=== PATIENT | male | born 1935 | race Caucasian/White ===

== ENCOUNTER → 2017-12-04 | Outpatient (CLI) | payer OTHER | END | disposition home or self-care (01) | LOC: C.LABSPEC 16:55 | PROVIDERS: ATTEND Podiatrist Foot & Ankle Surgery | DX: L60.0 Ingrowing nail (principal) ==

== ENCOUNTER 2024-10-21 04:05 | Inpatient (IN) ==
--- NOTE | 2024-10-21 04:30 | Emergency Department Note ---
Impression & Plan Acute dyspnea, Constipation admit to the [facility] ED Provider Note NAME: MAMADOU YOUNG AGE: 89 SEX: Male INFORMANT: Patient ED PROVIDER(S): Madison Melo DO CHIEF COMPLAINT: shortness of breath PLAN: Disposition: admit to the [facility] MEDICAL DECISION MAKING: this is an 89-year-old male patient who presents to the emergency department complaining of shortness of breath, congestion and constipation. Patient noticed he has had increasing shortness of breath over the past couple of days with upper respiratory congestion and runny/watery eyes. Patient also has noticed increasing constipation over the past week. He has been trying to take laxatives with no results. on physical exam, the patient does have significant abdominal distention. Abdominal x-ray shows moderate colonic fecal retention but no obvious signs of obstruction. Chest x-ray shows no evidence of pneumonia Or congestive heart failure. Upper respiratory bio fire testing was negative. O2 saturations were stable. BNP was normal. EKG and troponin were unremarkable. Other laboratory testing reveals no leukocytosis or anemia. Renal function and glucose were normal. Patient does describe Moderate orthopnea. Triage Nursing notes: reviewed and agree With them. Vital Signs: reviewed and remarkable for no significant abnormalities Differential Diagnosis: URI, pneumonia, CHF, bowel obstruction, constipation Diagnostics, independently interpreted by me: ECG: normal sinus rhythm at a rate of 73 with first-degree AV block. There is no ST segment elevation or signs of ischemia Cardiac Monitoring: normal sinus rhythm at 76 Imaging studies: Obstruction series: moderate colonic fecal retention with no obvious signs of obstruction. Chest x-ray portion of this x-ray series reveals no pulmonary infiltrate or consolidation. HPI: 89 year old Male arrives for evaluation of Shortness of breath and constipation. Patient noticed he has had increasing shortness of breath over the past couple of days with upper respiratory congestion and runny/watery eyes. Patient also has noticed increasing constipation over the past week. He has been trying to take laxatives with no results. PAST MEDICAL HISTORY: See Below, PAST SURGICAL HISTORY: See Below, SOCIAL HISTORY: See Below, HOME MEDICATIONS: See list ALLERGIES: codeine VITALS: See Below PHYSICAL EXAMINATION: HEENT: Head - normocephalic and atraumatic. Pupils are equal, round, and reactive to light. Extraocular eye muscles are intact, and sclera are anicteric. There is yellow drainage from both eyes. Nose - moist nasal mucosa without discharge. Mouth - moist buccal mucosa. Oropharynx is nonerythematous and there is no tonsillar exudate or edema noted. Neck: Supple; no JVD Or nuchal rigidity Heart: Regular rate and rhythm. There is a normal S1 and S2 with no murmurs, clicks, or gallops appreciated. Lungs: Clear to auscultation bilaterally with no wheezes, rales, or rhonchi. Abdomen: Soft, Moderately distended with hypoactive bowel sounds. There are no palpable pulsatile masses or hepatosplenomegaly. There is no guarding, rigidity, or rebound noted. Extremities: there is trace pedal edema. There are easily palpable peripheral pulses. Skin: warm and dry with good turgor and no rashes. Emergency Department course: The patient was evaluated in room B-7. A complete history and physical was performed. An order was placed for continuous cardiac monitoring. The patient was in a normal sinus rhythm at a rate of 76. A twelve-lead EKG was obtained as described above. Upper respiratory bio fire testing was obtained. Patient has a portable chest x-ray performed. I discussed the case with the [facility] Hospitalist and they will evaluate for further inpatient care. 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 Deviated nasal septum Esophageal stricture Hypertrophic toenail HLD (hyperlipidemia) Medical History Sciatica Difficulty swallowing History of skin cancer Hearing deficit Surgical History History of open reduction and internal fixation (ORIF) procedure History of esophagogastroduodenoscopy (EGD) History of tooth extraction History of appendectomy History of Mohs micrographic surgery for skin cancer History of left cataract extraction Family History (Updated 07/28/24 @ 13:33 by Leticia Brito) Unknown Skin cancer Pure hypercholesterolemia Hypertension Father Family history of diabetes mellitus Brother Family hx of colon cancer Environmental allergies Colorectal cancer Other No family history of adverse response to anesthesia Denies family history of Ovarian cancer Prostate cancer Coronary heart disease Breast cancer Social History (Updated 07/28/24 @ 13:33 by Leticia Brito) Smoking Status: Current every day smoker Tobacco Type: Cigars Age Started Using Tobacco: 17; packs per day: 1; Cigarettes Per Day: 7-8 cigars daily; Second Hand Exposure: Yes; Do You Dip or Chew Tobacco: No; Hx Alcohol Use: No Hx Substance Use: No Preferred Language: Georgian Communication Ability: Effective Visual Impairment: No Limitations Hearing Ability: Use of Hearing Aid Publisher Assistant Required: No Beliefs That Will Affect Care: None marital status: Current Living Situation: Alone current occupational status: retired Feels Safe at Home: Yes Safety Concerns Comment: Pt reports falling, so is scared he is going to fall again Childhood Exposure to Second-Hand Smoke: Yes Diet: regular caffeine: Yes during the past year weight has: remained stable Dental Care, Regularly: No Physical Activity Frequency: Daily Physical Activity Frequency Comment: walks 0.5-0.75 Seatbelt Use: sometimes Sunscreen Use: No Assistive Devices: Glasses, Hearing Aid - Bilateral and Walker (does not use) Allergies Allergies Allergy/AdvReac Type Severity Reaction Status Date / Time codeine AdvReac Severe did not Verified 10/02/24 09:33 work for pain Home Meds Home Medications Medication Instructions Recorded Confirmed acetaminophen 500 mg tablet 500 mg PO Q6H PRN 12/31/22 10/02/24 (Tylenol Extra Strength) magnesium 250 mg tablet 250 mg PO DAILY 12/20/23 10/02/24 guaifenesin [Mucinex] PO PRN 10/02/24 10/02/24 Previous Rx's Medication Instructions Recorded psyllium husk 3.4 gram/5.4 gram 1 tbsp PO DAILY #660 grams 01/28/23 oral powder (Metamucil) loratadine 10 mg tablet 10 mg PO DAILY PRN allergy 06/11/23 symptoms 90 days #90 tabs albuterol sulfate 90 mcg/actuation 2 puff inhalation QID PRN 11/11/23 aerosol inhaler shortness of breath or wheezing #8.5 grams fluticasone propionate 50 2 spray intranasal DAILY #48 grams 08/02/24 mcg/actuation nasal spray,suspension olmesartan 20 mg tablet 20 mg PO DAILY #90 tabs 10/15/24 Results & Data (ED) Vital Signs Vital Signs - 24 hr 10/21/24 04:09 10/21/24 04:10 10/21/24 04:18 Temperature 36.8 C Temperature Source Oral Pulse Rate 78 79 Respiratory Rate 20 Respiratory Effort / Characteristics Non-Labored Spontaneous Respiratory Depth Normal Blood Pressure 117/80 Blood Pressure Mean 92 Pulse Oximetry 96 Oxygen Delivery Method Room Air Room Air Sepsis Recent Fever Within 48 Hours No Sepsis New/Unexplained Change in Mental Status N/A Sepsis Action Taken by Nursing No Action Required 10/21/24 04:30 10/21/24 04:30 10/21/24 05:30 Temperature Temperature Source Pulse Rate 72 72 Respiratory Rate 18 20 Respiratory Effort / Characteristics Respiratory Depth Blood Pressure 173/92 H 186/99 H Blood Pressure Mean 119 126 Pulse Oximetry 95 95 93 Oxygen Delivery Method Room Air Sepsis Recent Fever Within 48 Hours Sepsis New/Unexplained Change in Mental Status Sepsis Action Taken by Nursing 10/21/24 06:00 Temperature Temperature Source Pulse Rate 66 Respiratory Rate 20 Respiratory Effort / Characteristics Respiratory Depth Blood Pressure 185/96 H Blood Pressure Mean 115 Pulse Oximetry 93 Oxygen Delivery Method Sepsis Recent Fever Within 48 Hours Sepsis New/Unexplained Change in Mental Status Sepsis Action Taken by Nursing Laboratory Data 10/21/24 04:17 10/21/24 04:17 Lab Results 10/21/24 10/21/24 Range/Units 04:17 04:30 WBC 10.02 (4.8-10.8) K/ul RBC 4.44 L (4.70-6.10) M/uL Hgb 14.1 (14.0-18.0) g/dl Hct 41.8 L (42.0-52.0) % MCV 94.1 (80.0-100.0) fL MCH 31.8 (25.0-34.0) pg MCHC 33.7 (32.0-36.0) g/dL RDW Std Deviation 49.9 H (36.4-46.3) fL RDW Coeff of Rasheeda 14.4 (11.5-14.5) % Plt Count 275 (130-400) K/uL MPV 9.1 L (9.4-12.4) fL Immature Gran % (Auto) 0.5 % Neut % (Auto) 65.3 % Lymph % (Auto) 19.2 % [place] % (Auto) 12.1 % Eos % (Auto) 2.1 % Baso % (Auto) 0.8 % Neut # (Auto) 6.55 H (1.40-6.50) K/uL Lymph # (Auto) 1.92 (1.20-3.40) K/uL [place] # (Auto) 1.21 H (0.11-0.59) K/uL Eos # (Auto) 0.21 (0.00-0.50) K/uL Baso # (Auto) 0.08 (0.00-0.20) K/uL Immature Gran # (Auto) 0.05 (0.01-0.20) K/uL Sodium 141 (136-145) mmol/L Potassium 3.6 (3.5-5.1) mmol/L Chloride 106 (98-107) mmol/L Carbon Dioxide 33 H (21-32) mmol/L Anion Gap 2 L (3-11) BUN 15 (6-23) mg/dl Creatinine 0.81 (0.6-1.4) mg/dl Est Cr Clr Drug Dosing 69.6 ml/min eGFR 85.33 BUN/Creatinine Ratio 18.5 (10-20) Glucose 97 (70-99(Fasting)) mg/dl Calcium 8.7 (8.6-10.3) mg/dl Total Bilirubin 0.5 (0.2-1.0) mg/dl AST 14 (13-39) U/L ALT 9 (7-52) U/L Alkaline Phosphatase 83 (34-104) U/L Troponin I High Sens 18.8 (0-20) pg/ml B-Natriuretic Peptide 71 (0-100) pg/ml Total Protein 6.7 (6.0-8.3) gm/dl Albumin 3.9 (3.4-5.0) gm/dl Globulin 2.8 (2.5-4.0) gm/dl Albumin/Globulin Ratio 1.4 (0.9-2) Adenovirus (PCR) Not Detected (NotDetected) B. pertussis DNA (PCR) Not Detected (NotDetected) B.parapertussis DNA PCR Not Detected (NotDetected) C. pneumoniae DNA (PCR) Not Detected (NotDetected) Coronavirus OC43 (PCR) Not Detected (NotDetected) Coronavirus HKU1 (PCR) Not Detected (NotDetected) Coronavirus 229E (PCR) Not Detected (NotDetected) SARS-CoV-2 (PCR) Not Detected (NotDetected) Coronavirus NL63 (PCR) Not Detected (NotDetected) Human Metapneumovir PCR Not Detected (NotDetected) Influenza Type A (PCR) Not Detected (NotDetected) Influenza Type B (PCR) Not Detected (NotDetected) M. pneumoniae (PCR) Not Detected (NotDetected) Parainfluenza 1 (PCR) Not Detected (NotDetected) Parainfluenza 2 (PCR) Not Detected (NotDetected) Parainfluenza 3 (PCR) Not Detected (NotDetected) Parainfluenza 4 (PCR) Not Detected (NotDetected) RSV (PCR) Not Detected (NotDetected) Entero/Rhino (PCR) Not Detected (NotDetected) Administered Medications Discontinued Medications Bisacodyl (Bisacodyl 10 Mg Supp) 10 mg VA NOW STA Stop: 10/21/24 05:59 Last Admin: 10/21/24 06:17 Dose: 10 mg Documented By: EDWARD Imaging Data Radiologist's Impression: Chest/Abdomen X-ray 10/21/24 04:30 EXAM: XR abdomen 2V w PA chest CLINICAL HISTORY: CHEST PAIN, EVALUATE FOR CONSTIPATION. TECHNIQUE: X-ray images of the chest were obtained in posteroanterior (PA) projection and x-ray of the abdomen was obtained AP view. COMPARISON: X-ray chest dated 07/02/2024 and X-ray abdomen dated 08/19/2022. FINDINGS: Pulmonary Parenchyma: No evidence of consolidation, collapse, or focal opacities. No evidence of pleural effusion or pleural thickening. Heart and Mediastinum: Increased cardiac size. Bilateral prominent hilar vascular shadows. Bony Thorax: Bony thorax appears intact without fractures or deformities. Abdomen: The stomach, small bowel, and colon gas patterns are all normal and there is no free air around the falciform ligament. No definite radiopaque shadows could be depicted. Scanned osseous structures are unremarkable. IMPRESSION: 1. Increased cardiac size. 2. Bilateral prominent hilar vascular shadows; could be non-specific versus secondary to congestion. Clinical correlation is recommended. 3. Unremarkable x-ray of the abdomen. 4. Unchanged study. Electronically signed by Moe Jha 10-21-2024 06:18 AM Discharge Plan Visit Data Chief Complaint: Shortness of Breath/Dyspnea Stated Complaint: SHORTNESS OF BREATH, CONSTIPATION ED Provider: Madison Melo Discharge Problem: Acute dyspnea, Constipation Forms Stand Alone Forms: [facility] [employer] Prescriptions Prescriptions: No Action Metamucil 3.4 gram/5.4 gram powder 1 tbsp PO DAILY Qty: 660 2RF Rx Instructions: mix into at least 8 oz of water or juice before administering loratadine 10 mg tablet 10 mg PO DAILY PRN (Reason: allergy symptoms) 90 Days Qty: 90 1RF fluticasone propionate 50 mcg/actuation spray,suspension 2 spray intranasal DAILY Qty: 48 2RF Rx Instructions: administer into each nostril olmesartan 20 mg tablet 20 mg PO DAILY Qty: 90 3RF acetaminophen [Tylenol Extra Strength] 500 mg tablet 500 mg PO Q6H PRN guaifenesin [Mucinex] PO PRN magnesium 250 mg tablet 250 mg PO DAILY albuterol sulfate 90 mcg/actuation HFA aerosol inhaler 2 puff inhalation QID PRN (Reason: shortness of breath or wheezing) Qty: 8.5 1RF Referrals Referrals: Stacie Mario MD [Primary Care Provider] -
[2024-10-21 04:48] LABS: Basophils # (auto) 0.08 K/uL (0.00-0.20); Basophils % (auto) 0.8 %; Eosinophils # (auto) 0.21 K/uL (0.00-0.50); Eosinophils % (auto) 2.1 %; Hematocrit (blood only) 41.8 % (42.0-52.0); Hemoglobin 14.1 g/dl (14.0-18.0); Immature Granulocytes # (auto) 0.05 K/uL (0.01-0.20); Immature Granulocytes % (auto) 0.5 %; Lymphocytes # (auto) 1.92 K/uL (1.20-3.40); Lymphocytes % (auto) 19.2 %; Mean Corpuscular Hemoglobin 31.8 pg (25.0-34.0); Mean Corpuscular Hgb Conc 33.7 g/dL (32.0-36.0); Mean Corpuscular Volume 94.1 fL (80.0-100.0); Mean Platelet Volume 9.1 fL (9.4-12.4); Monocytes # (auto) 1.21 K/uL (0.11-0.59); Monocytes % (auto) 12.1 %; Neutrophils # (auto) 6.55 K/uL (1.40-6.50); Neutrophils % (auto) 65.3 %; Platelet Count 275 K/uL (130-400); RDW Coefficient of Variation 14.4 % (11.5-14.5); RDW Standard Deviation 49.9 fL (36.4-46.3); Red Blood Count 4.44 M/uL (4.70-6.10); White Blood Count 10.02 K/ul (4.8-10.8)
[2024-10-21 04:59] LABS: Albumin Globulin Ratio 1.4 (0.9-2); Albumin Level 3.9 gm/dl (3.4-5.0); BUN Creatinine Ratio 18.5 (10-20); Bilirubin,Total 0.5 mg/dl (0.2-1.0); Calcium 8.7 mg/dl (8.6-10.3); Creatinine Clr Calc Pharmacy 69.6 ml/min; Globulin 2.8 gm/dl (2.5-4.0); Potassium 3.6 mmol/L (3.5-5.1); Total Protein 6.7 gm/dl (6.0-8.3)
[2024-10-21 05:05] LABS: Troponin I High Sensitivity 18.8 pg/ml (0-20)
--- NOTE | 2024-10-21 05:21 | History & Physical Report ---
Date of Service October 21, 2024 Assessment & Plan (1) Constipation: (2) COPD (chronic obstructive pulmonary disease): (3) Ambulatory dysfunction: (4) Essential hypertension: (5) BPH w urinary obs/LUTS: Plan The patient is an 89-year-old male with past medical history including BPH with LUTS, tobacco use, prediabetes, hypertension, inferior nasal turbinate hypertrophy, esophageal stricture, hyperlipidemia, COPD, and allergic symptoms.The patient presents to the emergency department with complaint of shortness of breath, constipation, has not moved his bowels in over a week despite normal intake of liquids and solids. He has had difficulty with discomfort urinating, and starting his stream. He reports some generalized fatigue, weakness, and difficulty ambulating. He attributes his shortness of breath to abdominal distention and inability to take a deep breath. #Constipation- KUB, difficult to interpret, but does not show obstruction, there are some nonspecific bowel loop changes, potentially a developing ileus. Review radiology interpretation when available Patient reports that he has not moved his bowels in the past week Place on more aggressive bowel regimen as noted Colace 100 mg p.o. twice daily Dulcolax suppository daily as needed, with dose now MiraLAX 17 g p.o. daily as needed Continue Metamucil 1 tablespoon p.o. daily NSS + KCl 20 mEq per hour x 1 L #COPD exacerbation- History of tobacco use Pulse ox presently 93% on room air. Goal range is 92-94% Likely secondary to abdominal distention and decreased lung excursion secondarily Continue albuterol sulfate HFA 2 puffs 4 times daily, every 2 hours as needed Continue Mucinex 600 mg p.o. every 12 hours DuoNebs every 2 hours as needed Respiratory BioFire test negative #Tobacco use disorder- Recently discontinued cigarette use. Tobacco sensation encouraged. He reports that he did stop smoking on 10/01/2024, just prior to office visit with Dr. Mario in the outpatient setting #BPH with LUTS- Follow urine culture and sensitivity Patient notes decreased urinary output, dysuria, and decreased ability to start stream Start tamsulosin 0.4 mg daily #Ongoing medical issues: Hypertension-continue olmesartan or substitute, Allergic symptoms: Loratadine 10 mg daily as needed, fluticasone nasal spray 2 sprays each nostril daily Ambulatory dysfunction-Consult PT/OT Prediabetes-glucose 97 on admission follow-up with regular morning laboratories History of Present Illness Chief Complaint: The patient presents to the emergency department with complaint of shortness of breath, constipation, has not moved his bowels in over a week despite normal intake of liquids and solids. He has had difficulty with discomfort urinating, and starting his stream. He reports some generalized fatigue, weakness, and difficulty ambulating. He attributes his shortness of breath to abdominal distention and inability to take a deep breath. Primary Care Provider: Stacie Mario MD The patient is an 89-year-old male with past medical history including BPH with LUTS, tobacco use, prediabetes, hypertension, inferior nasal turbinate hypertrophy, esophageal stricture, hyperlipidemia, COPD, and allergic symptoms.The patient presents to the emergency department with complaint of shortness of breath, constipation, has not moved his bowels in over a week despite normal intake of liquids and solids. He has had difficulty with discomfort urinating, and starting his stream. He reports some generalized fatigue, weakness, and difficulty ambulating. He attributes his shortness of breath to abdominal distention and inability to take a deep breath. Allergies Allergy/AdvReac Type Severity Reaction Status Date / Time codeine AdvReac Severe did not Verified 10/02/24 09:33 work for pain Home Medications Medication Instructions Recorded Confirmed Type acetaminophen 500 mg tablet 500 mg PO Q6H PRN 12/31/22 10/02/24 History (Tylenol Extra Strength) psyllium husk 3.4 gram/5.4 gram 1 tbsp PO DAILY #660 grams 01/28/23 10/02/24 Rx oral powder (Metamucil) loratadine 10 mg tablet 10 mg PO DAILY PRN allergy 06/11/23 10/02/24 Rx symptoms 90 days #90 tabs albuterol sulfate 90 mcg/actuation 2 puff inhalation QID PRN 11/11/23 10/02/24 Rx aerosol inhaler shortness of breath or wheezing #8.5 grams magnesium 250 mg tablet 250 mg PO DAILY 12/20/23 10/02/24 History fluticasone propionate 50 2 spray intranasal DAILY #48 grams 05/08/24 10/02/24 Rx mcg/actuation nasal spray,suspension guaifenesin [Mucinex] PO PRN 10/02/24 10/02/24 History olmesartan 20 mg tablet 20 mg PO DAILY #90 tabs 10/15/24 Rx Past Med/Surg History Problem List (Updated 10/21/24 @ 05:24 by Keith Ray MD) COPD (chronic obstructive pulmonary disease) BPH w urinary obs/LUTS Ambulatory dysfunction Cognitive impairment Lower urinary tract symptoms (LUTS) Current smoker Prediabetes Sinus congestion (Acute) Essential hypertension (Chronic) BPH associated with nocturia (Acute) Dysphagia (Acute) Refractory obstruction of nasal airway Hypertrophy of both inferior nasal turbinates Deviated nasal septum Esophageal stricture Hypertrophic toenail HLD (hyperlipidemia) Medical History Sciatica Difficulty swallowing History of skin cancer Hearing deficit Surgical History History of open reduction and internal fixation (ORIF) procedure History of esophagogastroduodenoscopy (EGD) History of tooth extraction History of appendectomy History of Mohs micrographic surgery for skin cancer History of left cataract extraction Family History (Updated 07/28/24 @ 13:33 by Leticia Brito) Unknown Skin cancer Pure hypercholesterolemia Hypertension Father Family history of diabetes mellitus Brother Family hx of colon cancer Environmental allergies Colorectal cancer Other No family history of adverse response to anesthesia Denies family history of Ovarian cancer Prostate cancer Coronary heart disease Breast cancer Social History (Updated 07/28/24 @ 13:33 by Leticia Brito) Smoking Status: Current every day smoker Tobacco Type: Cigars Age Started Using Tobacco: 17; packs per day: 1; Cigarettes Per Day: 7-8 cigars daily; Second Hand Exposure: Yes; Do You Dip or Chew Tobacco: No; Hx Alcohol Use: No Hx Substance Use: No Preferred Language: Bulgarian Communication Ability: Effective Visual Impairment: No Limitations Hearing Ability: Use of Hearing Aid Surveillance Sensor Operator Required: No Beliefs That Will Affect Care: None marital status: Current Living Situation: Alone current occupational status: retired Feels Safe at Home: Yes Safety Concerns Comment: Pt reports falling, so is scared he is going to fall again Childhood Exposure to Second-Hand Smoke: Yes Diet: regular caffeine: Yes during the past year weight has: remained stable Dental Care, Regularly: No Physical Activity Frequency: Daily Physical Activity Frequency Comment: walks 0.5-0.75 Seatbelt Use: sometimes Sunscreen Use: No Assistive Devices: Glasses, Hearing Aid - Bilateral and Walker (does not use) Review of Systems Review of Systems: The patient denies chest pain, palpitations, lower extremity swelling, sore throat, fevers, chills, sweats, vomiting, diarrhea, blood in urine or stool, dysuria, urinary frequency or urgency, lightheadedness, dizziness, headache, loss of consciousness, rash, abnormal bruising or bleeding, focal or generalized weakness, numbness or tingling in arms or legs, generalized arthralgias or myalgias, back or neck pain, or night sweats. The review of systems is otherwise negative other than for that already noted above, and at least 10 systems have been reviewed. Physical Exam Physical Exam: The patient is awake, alert and oriented 3, well developed and well nourished, normocephalic and atraumatic, lying in bed and in no acute distress. HEENT--PERRL, EOMI, mucous membranes and oropharynx mildly dry. Neck--supple. No JVD. No bruits. Thyroid normal, trachea midline, no adenopathy. Heart--normal S1 and S2. No murmurs, rubs or gallops. Lungs--decreased breath sounds throughout. A few scattered wheezes bilaterally. No respiratory distress, no accessory muscle use. Abdomen--normal bowel sounds and soft. Nontender. Mildly distended and tympanitic. Extremities-- 1+ bilateral pretibial pitting edema. Dermatologic--normal skin turgor, normal color, no abnormal lymph nodes, no rash. Neurologic--cranial nerves II through XII grossly intact. Rheumatologic--normal range of motion. Psychiatric--normal affect. Results & Data Results & Data Vital Signs (Past 12 Hours) Vital Signs Temp Pulse Resp BP Pulse Ox O2 Del Method 10/21/24 04:30 72 18 173/92 H 95 10/21/24 04:30 95 Room Air 10/21/24 04:18 Room Air 10/21/24 04:10 79 10/21/24 04:09 36.8 C 78 20 117/80 96 Room Air Laboratory Results Laboratory Results WBC 10.02 K/ul (4.8-10.8) 10/21/24 04:17 RBC 4.44 M/uL (4.70-6.10) L 10/21/24 04:17 Hgb 14.1 g/dl (14.0-18.0) 10/21/24 04:17 Hct 41.8 % (42.0-52.0) L 10/21/24 04:17 MCV 94.1 fL (80.0-100.0) 10/21/24 04:17 MCH 31.8 pg (25.0-34.0) 10/21/24 04:17 MCHC 33.7 g/dL (32.0-36.0) 10/21/24 04:17 RDW Std Deviation 49.9 fL (36.4-46.3) H 10/21/24 04:17 RDW Coeff of Rasheeda 14.4 % (11.5-14.5) 10/21/24 04:17 Plt Count 275 K/uL (130-400) 10/21/24 04:17 MPV 9.1 fL (9.4-12.4) L 10/21/24 04:17 Immature Gran % (Auto) 0.5 % 10/21/24 04:17 Neut % (Auto) 65.3 % 10/21/24 04:17 Lymph % (Auto) 19.2 % 10/21/24 04:17 Edmunds % (Auto) 12.1 % 10/21/24 04:17 Eos % (Auto) 2.1 % 10/21/24 04:17 Baso % (Auto) 0.8 % 10/21/24 04:17 Neut # (Auto) 6.55 K/uL (1.40-6.50) H 10/21/24 04:17 Lymph # (Auto) 1.92 K/uL (1.20-3.40) 10/21/24 04:17 Edmunds # (Auto) 1.21 K/uL (0.11-0.59) H 10/21/24 04:17 Eos # (Auto) 0.21 K/uL (0.00-0.50) 10/21/24 04:17 Baso # (Auto) 0.08 K/uL (0.00-0.20) 10/21/24 04:17 Immature Gran # (Auto) 0.05 K/uL (0.01-0.20) 10/21/24 04:17 Sodium 141 mmol/L (136-145) 10/21/24 04:17 Potassium 3.6 mmol/L (3.5-5.1) 10/21/24 04:17 Chloride 106 mmol/L (98-107) 10/21/24 04:17 Carbon Dioxide 33 mmol/L (21-32) H 10/21/24 04:17 Anion Gap 2 (3-11) L 10/21/24 04:17 BUN 15 mg/dl (6-23) 10/21/24 04:17 Creatinine 0.81 mg/dl (0.6-1.4) 10/21/24 04:17 Est Cr Clr Drug Dosing 69.6 ml/min 10/21/24 04:17 eGFR 85.33 10/21/24 04:17 BUN/Creatinine Ratio 18.5 (10-20) 10/21/24 04:17 Glucose 97 mg/dl (70-99(Fasting)) 10/21/24 04:17 Calcium 8.7 mg/dl (8.6-10.3) 10/21/24 04:17 Total Bilirubin 0.5 mg/dl (0.2-1.0) 10/21/24 04:17 AST 14 U/L (13-39) 10/21/24 04:17 ALT 9 U/L (7-52) 10/21/24 04:17 Alkaline Phosphatase 83 U/L (34-104) 10/21/24 04:17 Troponin I High Sens 18.8 pg/ml (0-20) 10/21/24 04:17 B-Natriuretic Peptide 71 pg/ml (0-100) 10/21/24 04:17 Total Protein 6.7 gm/dl (6.0-8.3) 10/21/24 04:17 Albumin 3.9 gm/dl (3.4-5.0) 10/21/24 04:17 Globulin 2.8 gm/dl (2.5-4.0) 10/21/24 04:17 Albumin/Globulin Ratio 1.4 (0.9-2) 10/21/24 04:17 Code Status & VTE Plan Code Status Full code PG Care Time/CCT Total # of Minutes Spent Total Time Spent with Patient: Total time spent is greater than 50% in coordination of care (as documented) at patient's floor/unit and/or counseling patient: Coding Level of Care Code 15223 INT INP/OBS CARE MIN Diagnoses Constipation K59.00 COPD (chronic obstructive pulmonary disease) J44.9 Ambulatory dysfunction R26.2 Essential hypertension I10 BPH w urinary obs/LUTS N40.1; N13.8
[2024-10-21 05:41] LABS: Adenovirus PCR Not Detected (NotDetected); Bordetella parapertussis PCR Not Detected (NotDetected); Bordetella pertussis PCR Not Detected (NotDetected); Chlamydia pneumoniae PCR Not Detected (NotDetected); Coronavirus 229E PCR Not Detected (NotDetected); Coronavirus CoV-2 (COVID19)PCR Not Detected (NotDetected); Coronavirus HKU1 PCR Not Detected (NotDetected); Coronavirus NL63 PCR Not Detected (NotDetected); Coronavirus OC43PCR Not Detected (NotDetected); Human Metapneumovirus PCR Not Detected (NotDetected); Influenza A PCR Not Detected (NotDetected); Influenza B PCR Not Detected (NotDetected); Mycoplasma pneumoniae PCR Not Detected (NotDetected); Parainfluenza Virus 1 PCR Not Detected (NotDetected); Parainfluenza Virus 2 PCR Not Detected (NotDetected); Parainfluenza Virus 3 PCR Not Detected (NotDetected); Parainfluenza Virus 4 PCR Not Detected (NotDetected); Respiratory Syncytial VirusPCR Not Detected (NotDetected); Rhinovirus/Enterovirus PCR Not Detected (NotDetected)
[2024-10-21] MEDS: bisacodyL 10 MG SUPP PR STA (06:17)
--- NOTE | 2024-10-21 06:18 | XRay Report ---
EXAM: XR abdomen 2V w PA chest CLINICAL HISTORY: CHEST PAIN, EVALUATE FOR CONSTIPATION. TECHNIQUE: X-ray images of the chest were obtained in posteroanterior (PA) projection and x-ray of the abdomen was obtained AP view. COMPARISON: X-ray chest dated 07/02/2024 and X-ray abdomen dated 08/19/2022. FINDINGS: Pulmonary Parenchyma: No evidence of consolidation, collapse, or focal opacities. No evidence of pleural effusion or pleural thickening. Heart and Mediastinum: Increased cardiac size. Bilateral prominent hilar vascular shadows. Bony Thorax: Bony thorax appears intact without fractures or deformities. Abdomen: The stomach, small bowel, and colon gas patterns are all normal and there is no free air around the falciform ligament. No definite radiopaque shadows could be depicted. Scanned osseous structures are unremarkable. IMPRESSION: 1. Increased cardiac size. 2. Bilateral prominent hilar vascular shadows; could be non-specific versus secondary to congestion. Clinical correlation is recommended. 3. Unremarkable x-ray of the abdomen. 4. Unchanged study. Electronically signed by Moe Jha 10-21-2024 06:18 AM
[2024-10-21] MEDS ORDERED: ONDANSETRON INJ 2 MG/ML 2 ML VIAL IV PRN (07:10)
[2024-10-21] MEDS ORDERED: POLYETHYLENE (MIRALAX) 17 GM PACK PO PRN (07:10)
[2024-10-21] MEDS ORDERED: LORATADINE 10 MG TAB PO PRN (07:10)
[2024-10-21] MEDS ORDERED: bisacodyL 10 MG SUPP PR PRN (07:10)
[2024-10-21] MEDS ORDERED: ALBUT/IPRATROP 3MG/0.5MG NEB 3 ML VIAL NEB PRN (07:10)
[2024-10-21] MEDS ORDERED: ALBUTEROL HFA 8 GM INHALER INH PRN (07:23)
[2024-10-21] MEDS: ALBUTEROL HFA 8 GM INHALER INH SCH (07:34)
[2024-10-21 09:02] LABS: Appearance Urine Clear (Clear); Bilirubin Urine Negative (Negative); Blood Urine Negative (Negative); Color Urine Yellow; Glucose Urine UA Negative (Negative); Ketones Urine Negative (Negative); Leukocyte Esterase Urine Negative (Negative); Nitrite Urine Negative (Negative); Protein Urine Negative (Negative); Specific Gravity Urine 1.019 (1.000-1.030); Urobilinogen Urine Negative (Negative)
[2024-10-21] MEDS: PSYLLIUM or GUAR GUM FIBER 4GM PACKET PO SCH (09:11)
[2024-10-21] MEDS: HEPARIN SOD 5,000 UNIT/0.5 ML VIAL SQ SCH (09:12)
[2024-10-21] MEDS: DOCUSATE SODIUM 100 MG CAP PO SCH (09:12)
[2024-10-21] MEDS: FLUTICASONE PROPIONATE NA SPR 16 GM BTL NAE SCH (09:13)
[2024-10-21] MEDS: guaiFENesin 600 MG TABCR PO SCH (09:14)
[2024-10-21] MEDS: LOSARTAN POTASSIUM 50 MG TAB PO SCH (09:14)
[2024-10-21] MEDS: TAMSULOSIN HCL 0.4 MG CAP PO SCH (09:14)
--- NOTE | 2024-10-21 09:15 | CT Scan Report ---
ABDOMEN AND PELVIS CT WITHOUT CONTRAST CT DOSE: 1230.53 mGy.cm HISTORY: Acute generalized abdominal pain with constipation abd pain TECHNIQUE: Multiaxial CT images of the abdomen and pelvis were performed without contrast. A dose lo wering technique was utilized adhering to the principles of ALARA. COMPARISON STUDY: Radiographs of same day, a chest CT 03/19/2023 FINDINGS: Limited study secondary to upper extremity positioning, respiratory motion artifact and lac k of IV contrast. The heart is mildly enlarged with mild coronary artery calcifications. The lung bas es are generally clear. There is no pneumatosis or pneumoperitoneum. Unremarkable unenhanced spleen, pancreas and adrenal glands. Cholelithiasis without CT evidence of ac lanette cholecystitis. Unremarkable liver. Mild nonspecific bilateral perinephric stranding without hydro nephrosis. Exophytic cyst arises from the posterior superior to midpole left kidney measuring 7.3 x 4 .8 x 10.9 cm. Prostatomegaly. Urinary bladder wall thickening with partial distention. Atherosclerosi s of the aorta. No pathologically enlarged lymph nodes. Mild nonspecific distal esophageal wall thickening. Duodenal diverticulum. Colonic diverticulosis wit hout acute diverticulitis. Moderate colonic fecal retention. The appendix is not definitively seen. N o acute fracture. Scattered sclerotic foci of the bony pelvis and lower lumbar spine are nonspecific, possibly bone islands. IMPRESSION: 1. No bowel obstruction or bowel wall thickening. 2. Moderate fecal retention. 3. Colonic diverticulosis. 4. Cholelithiasis. 5. Prostamegaly with evidence of chronic outlet obstruction. Correlate with urinalysis. ACT 112: Negative or not required by law. The above report was generated using voice recognition software. It may contain grammatical, syntax o r spelling errors. Electronically signed by: Vinny Stewart M.D. 10/21/2024 9:12 AM
--- NOTE | 2024-10-21 14:32 | XCELERA ---
[id number]
[2024-10-21] MEDS: ACETAMINOPHEN 500 MG TAB PO PRN (15:55)
[2024-10-21] MEDS: ARIPiprazole 5 MG TAB PO SCH (21:10)
[2024-10-22] MEDS: MELATONIN 3 MG TAB PO PRN (01:07)
[2024-10-22 07:16] LABS: Basophils # (auto) 0.05 K/uL (0.00-0.20); Basophils % (auto) 0.5 %; Eosinophils # (auto) 0.17 K/uL (0.00-0.50); Eosinophils % (auto) 1.8 %; Hematocrit (blood only) 38.5 % (42.0-52.0); Hemoglobin 13.1 g/dl (14.0-18.0); Immature Granulocytes # (auto) 0.05 K/uL (0.01-0.20); Immature Granulocytes % (auto) 0.5 %; Lymphocytes # (auto) 1.14 K/uL (1.20-3.40); Lymphocytes % (auto) 11.9 %; Mean Corpuscular Hemoglobin 31.6 pg (25.0-34.0); Mean Corpuscular Volume 92.8 fL (80.0-100.0); Mean Platelet Volume 9.2 fL (9.4-12.4); Monocytes # (auto) 0.99 K/uL (0.11-0.59); Monocytes % (auto) 10.3 %; Neutrophils # (auto) 7.18 K/uL (1.40-6.50); Platelet Count 240 K/uL (130-400); RDW Coefficient of Variation 14.3 % (11.5-14.5); Red Blood Count 4.15 M/uL (4.70-6.10); White Blood Count 9.58 K/ul (4.8-10.8)
[2024-10-22 07:34] LABS: Albumin Level 3.5 gm/dl (3.4-5.0); BUN Creatinine Ratio 18.3 (10-20); Calcium 8.8 mg/dl (8.6-10.3); Creatinine Clr Calc Pharmacy 88.3 ml/min; Magnesium 1.8 mg/dl (1.7-2.4); Phosphorus 3.3 mg/dl (2.5-4.9); Potassium 3.4 mmol/L (3.5-5.1)
--- NOTE | 2024-10-22 09:36 | Hospitalist Progress Note ---
Date of Service October 22, 2024 Assessment & Plan (1) Constipation: (2) COPD (chronic obstructive pulmonary disease): (3) Ambulatory dysfunction: (4) Essential hypertension: (5) BPH w urinary obs/LUTS: (6) Dementia: Plan The patient is an 89-year-old male with past medical history including BPH with LUTS, tobacco use, prediabetes, hypertension, inferior nasal turbinate hypertrophy, esophageal stricture, hyperlipidemia, COPD, and allergic symptoms.The patient presents to the emergency department with complaint of shortness of breath, constipation, has not moved his bowels in over a week despite normal intake of liquids and solids. He has had difficulty with discomfort urinating, and starting his stream. He reports some generalized fatigue, weakness, and difficulty ambulating. He attributes his shortness of breath to abdominal distention and inability to take a deep breath. #Constipation- Resolved he has had a bowel movement will continue stool softener given some residual stool in the colon #COPD exacerbation- No wheeze on exam today Continue albuterol sulfate HFA 2 puffs 4 times daily, every 2 hours as needed Continue Mucinex 600 mg p.o. every 12 hours DuoNebs every 2 hours as needed Respiratory BioFire test negative #Tobacco use disorder- Recently discontinued cigarette use. Tobacco sensation encouraged. He reports that he did stop smoking on 10/01/2024, just prior to office visit with Dr. Mario in the outpatient setting #BPH with LUTS- Follow urine culture and sensitivity Patient notes decreased urinary output, dysuria, and decreased ability to start stream Start tamsulosin 0.4 mg daily #Dementia patient has some dementia or at least cognitive impairment as corroborated by his daughter according to his daughter, he has become more confused and often drives several times a day to see her He lives alone and has fallen a few times in the past He is not a safe discharge home # Frequent falls Has fallen a few times in the past Lives alone Not able to participate fully in PT because he was not following instructions He is less impulsive today and may participate in PT #Ongoing medical issues: Hypertension-continue olmesartan or substitute, Allergic symptoms: Loratadine 10 mg daily as needed, fluticasone nasal spray 2 sprays each nostril daily Ambulatory dysfunction-Consult PT/OT Prediabetes-glucose 97 on admission follow-up with regular morning laboratories Disposition: patient has some dementia or at least cognitive impairment as corroborated by his daughter according to his daughter, he has become more confused and often drives several times a day to see her He lives alone and has fallen a few times in the past He is not a safe discharge home. Awaiting repeat PT eval. He may benefit from placement, although I doubt if he will agree Admission and Anticipated Discharge Date Admission Date: October 21, 2024 Subjective patient seen and examined, sitting in the chair, was looking for his dentures and glasses Review of Systems Review of Systems: All systems reviewed are negative, apart from the ones contained in the history. Physical Exam Physical Exam: The patient is awake, alert and oriented 3, well developed and well nourished, normocephalic and atraumatic, lying in bed and in no acute distress. HEENT--PERRL, EOMI, mucous membranes and oropharynx mildly dry Neck--supple. No JVD. No bruits. Thyroid normal, trachea midline, no adenopathy. Heart--normal S1 and S2. No murmurs, rubs or gallops. Lungs--clear bilaterally, no respiratory distress, no accessory muscle use. Abdomen--normal bowel sounds and soft. Extremities--no cyanosis or clubbing. No edema. Dermatologic--normal skin turgor, normal color, no abnormal lymph nodes, no rash. Neurologic--cranial nerves II through XII grossly intact. Rheumatologic--normal range of motion. Psychiatric--normal affect. Results & Data Results & Data Vital Signs (Past 12 Hours) Vital Signs Temp Pulse Resp BP Pulse Ox O2 Del Method 10/22/24 09:21 98.2 F 72 16 166/73 H 96 Room Air 10/22/24 07:41 97.5 F L 83 16 167/75 H 95 Room Air 10/22/24 07:00 Room Air PG Care Time/CCT Total # of Minutes Spent Total Time Spent with Patient: Total time spent is greater than 50% in coordination of care (as documented) at patient's floor/unit and/or counseling patient: Coding Level of Care Code 50820 SUB INP/OBS CARE 2/35MIN Diagnoses Constipation K59.00 COPD (chronic obstructive pulmonary disease) J44.9 Ambulatory dysfunction R26.2 Essential hypertension I10 BPH w urinary obs/LUTS N40.1; N13.8 Dementia F03.90 Time Spent (min) 35
[2024-10-22] MEDS: OLANZapine 10 MG/2.1 ML SDV IM ONE (19:58)
[2024-10-23] MEDS: OLANZapine 10 MG/2.1 ML SDV IM ONE ×2 (00:28→03:22)
[2024-10-23] MEDS: IBUPROFEN 600 MG TAB PO ONE (03:17)
--- NOTE | 2024-10-23 05:40 | Communication Note ---
Date of Service: October 23, 2024 Patient w/ hyperactive delirium with aggression overnight. Code montoya called x2. Patient becoming aggressive towards nurses and reaching to try and punch or kick surrounding persons. Ordered Tylenol, ibuprofen, lidocaine patch in an effort to control hip pain assuming this was a potential factor leading to agitation with no success. Zyprexa 5 mg x2 and Zyprexa 10 mg given in a span of 6-8 hours w/ minimal change. Patient currently in soft limb restraints in an effort to prevent further self harm and minimize risk to staff Resident Activity Tracking Resident Involvement: Resident Care Provided Care Provided: Adult Hospital Medicine
[2024-10-23 07:24] LABS: Basophils # (auto) 0.05 K/uL (0.00-0.20); Basophils % (auto) 0.5 %; Eosinophils # (auto) 0.13 K/uL (0.00-0.50); Eosinophils % (auto) 1.4 %; Hematocrit (blood only) 39.9 % (42.0-52.0); Hemoglobin 13.8 g/dl (14.0-18.0); Immature Granulocytes # (auto) 0.03 K/uL (0.01-0.20); Immature Granulocytes % (auto) 0.3 %; Lymphocytes # (auto) 1.82 K/uL (1.20-3.40); Lymphocytes % (auto) 19.4 %; Mean Corpuscular Hemoglobin 32.1 pg (25.0-34.0); Mean Corpuscular Hgb Conc 34.6 g/dL (32.0-36.0); Mean Corpuscular Volume 92.8 fL (80.0-100.0); Mean Platelet Volume 9.5 fL (9.4-12.4); Monocytes # (auto) 1.19 K/uL (0.11-0.59); Monocytes % (auto) 12.7 %; Neutrophils # (auto) 6.15 K/uL (1.40-6.50); Neutrophils % (auto) 65.7 %; Platelet Count 284 K/uL (130-400); RDW Standard Deviation 47.8 fL (36.4-46.3); White Blood Count 9.37 K/ul (4.8-10.8)
[2024-10-23 07:45] LABS: Albumin Level 3.9 gm/dl (3.4-5.0); BUN Creatinine Ratio 13.4 (10-20); Calcium 9.2 mg/dl (8.6-10.3); Creatinine Clr Calc Pharmacy 64.6 ml/min; Magnesium 1.9 mg/dl (1.7-2.4); Phosphorus 3.1 mg/dl (2.5-4.9); Potassium 3.7 mmol/L (3.5-5.1)
[2024-10-23] MEDS: LIDOCAINE 5% 1 PATCH TD SCH (08:04)
--- NOTE | 2024-10-23 09:33 | Hospitalist Progress Note ---
Date of Service October 23, 2024 Assessment & Plan (1) Constipation: (2) COPD (chronic obstructive pulmonary disease): (3) Ambulatory dysfunction: (4) Essential hypertension: (5) BPH w urinary obs/LUTS: (6) Dementia: Plan The patient is an 89-year-old male with past medical history including BPH with LUTS, tobacco use, prediabetes, hypertension, inferior nasal turbinate hypertrophy, esophageal stricture, hyperlipidemia, COPD, and allergic symptoms.The patient presents to the emergency department with complaint of shortness of breath, constipation, has not moved his bowels in over a week despite normal intake of liquids and solids. He has had difficulty with discomfort urinating, and starting his stream. He reports some generalized fatigue, weakness, and difficulty ambulating. He attributes his shortness of breath to abdominal distention and inability to take a deep breath. #Dementia #AMS / Agitation - suspect delirium - patient has some dementia or at least cognitive impairment as corroborated by his daughter - according to his daughter, he has become more confused and often drives several times a day to see her - He lives alone and has fallen a few times in the past - He is not a safe discharge home - currently no active evidence of infection - CT head when pt more able to tolerate - abilify changed to seroquel hs + day time dosing per psyc, haldol prn for agitation - currently in 4-pt restraint, wean as behavior improves - psych on board #Constipation- - Resolved - he has had a bowel movement - will continue stool softener given some residual stool in the colon #COPD exacerbation- - No wheeze on exam today - Continue albuterol sulfate HFA 2 puffs 4 times daily, every 2 hours as needed - Continue Mucinex 600 mg p.o. every 12 hours - DuoNebs every 2 hours as needed - Respiratory BioFire test negative #Tobacco use disorder- - Recently discontinued cigarette use. - Tobacco sensation encouraged. - He reports that he did stop smoking on 10/01/2024, just prior to office visit with Dr. Mario in the outpatient setting #BPH with LUTS- - UA negative - Patient notes decreased urinary output, dysuria, and decreased ability to start stream - cont tamsulosin 0.4 mg daily # Frequent falls - Has fallen a few times in the past - Lives alone - Not able to participate fully in PT because he was not following instructions - He is less impulsive today and may participate in PT #Ongoing medical issues: - Hypertension-continue olmesartan or substitute, - Allergic symptoms: Loratadine 10 mg daily as needed, fluticasone nasal spray 2 sprays each nostril daily - Ambulatory dysfunction- PT/OT on board - Prediabetes-glucose 97 on admission follow-up with regular morning laboratories Disposition: patient has some dementia or at least cognitive impairment as corroborated by his daughter according to his daughter, he has become more confused and often drives several times a day to see her He lives alone and has fallen a few times in the past He is not a safe discharge home. Awaiting repeat PT eval. He may benefit from placement, although I doubt if he will agree Admission and Anticipated Discharge Date Admission Date: October 21, 2024 Subjective Overnight pt became combative and was placed on 4-point restraint Currently, he remains the same Review of Systems Review of Systems: Partial ROS completed which is negative Pt does not answer the questions at times Physical Exam Physical Exam: Gen: NAD, 4-point restraint, being restless in bed at times HEENT: NC/AT, dry MM Lungs: CTAB CVS: s1s2nl, RRR Abd: soft, NT, nl bowel sounds : external cather in place Ext: no edema, moving all extremities equally PG Care Time/CCT Total # of Minutes Spent Total Time Spent with Patient: Total time spent is greater than 50% in coordination of care (as documented) at patient's floor/unit and/or counseling patient: Coding Level of Care Code 53741 SUB INP/OBS CARE 3/50MIN Diagnoses Constipation K59.00 COPD (chronic obstructive pulmonary disease) J44.9 Ambulatory dysfunction R26.2 Essential hypertension I10 BPH w urinary obs/LUTS N40.1; N13.8 Dementia F03.90
[2024-10-23] MEDS: SODIUM CHLORIDE 0.9% 1,000 ML IV SCH (14:04)
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
[2024-10-23] MEDS ORDERED: QUEtiapine FUMARATE 25 MG TABLET PO PRN (16:19)
[2024-10-23] MEDS: QUEtiapine FUMARATE 25 MG TABLET PO SCH ×2 (18:05→21:16)
--- NOTE | 2024-10-23 22:23 | Electrocardiogram Report ---
Test Reason : Blood Pressure : */* mmHG Vent. Rate : 73 BPM Atrial Rate : 73 BPM P-R Int : 228 ms QRS Dur : 100 ms QT Int : 392 ms P-R-T Axes : 69 57 55 degrees QTcB Int : 431 ms Sinus rhythm with 1st degree A-V block Otherwise normal ECG When compared with ECG of 19-Mar-2023 18:48, No significant change was found Confirmed by Scar Lee ([id number]) on 10/23/2024 10:22:57 PM Referred By: REFERRED SELF Confirmed By: Scar Lee
[2024-10-24 07:10] LABS: Basophils # (auto) 0.05 K/uL (0.00-0.20); Basophils % (auto) 0.5 %; Eosinophils # (auto) 0.17 K/uL (0.00-0.50); Eosinophils % (auto) 1.5 %; Hematocrit (blood only) 45.2 % (42.0-52.0); Hemoglobin 15.3 g/dl (14.0-18.0); Immature Granulocytes # (auto) 0.03 K/uL (0.01-0.20); Immature Granulocytes % (auto) 0.3 %; Lymphocytes % (auto) 10.9 %; Mean Corpuscular Hgb Conc 33.8 g/dL (32.0-36.0); Mean Corpuscular Volume 94.6 fL (80.0-100.0); Mean Platelet Volume 9.3 fL (9.4-12.4); Monocytes # (auto) 1.17 K/uL (0.11-0.59); Monocytes % (auto) 10.6 %; Neutrophils # (auto) 8.38 K/uL (1.40-6.50); Neutrophils % (auto) 76.2 %; Platelet Count 260 K/uL (130-400); RDW Coefficient of Variation 14.2 % (11.5-14.5); RDW Standard Deviation 49.5 fL (36.4-46.3); Red Blood Count 4.78 M/uL (4.70-6.10)
[2024-10-24 07:35] LABS: Albumin Level 3.8 gm/dl (3.4-5.0); BUN Creatinine Ratio 16.4 (10-20); Calcium 8.9 mg/dl (8.6-10.3); Creatinine Clr Calc Pharmacy 79.1 ml/min; Magnesium 1.8 mg/dl (1.7-2.4); Phosphorus 3.4 mg/dl (2.5-4.9); Potassium 3.6 mmol/L (3.5-5.1)
--- NOTE | 2024-10-24 09:36 | Hospitalist Progress Note ---
Date of Service October 24, 2024 Assessment & Plan (1) Constipation: (2) COPD (chronic obstructive pulmonary disease): (3) Ambulatory dysfunction: (4) Essential hypertension: (5) BPH w urinary obs/LUTS: (6) Dementia: Plan The patient is an 89-year-old male with past medical history including BPH with LUTS, tobacco use, prediabetes, hypertension, inferior nasal turbinate hypertrophy, esophageal stricture, hyperlipidemia, COPD, and allergic symptoms.The patient presents to the emergency department with complaint of shortness of breath, constipation, has not moved his bowels in over a week despite normal intake of liquids and solids. He has had difficulty with discomfort urinating, and starting his stream. He reports some generalized fatigue, weakness, and difficulty ambulating. He attributes his shortness of breath to abdominal distention and inability to take a deep breath. #Dementia #AMS / Agitation - suspect delirium - patient has some dementia or at least cognitive impairment as corroborated by his daughter - according to his daughter, he has become more confused and often drives several times a day to see her - He lives alone and has fallen a few times in the past - He is not a safe discharge home - currently no active evidence of infection - CT head if pt is not improving - abilify changed to seroquel hs + day time dosing per psyc (TID dose changed to BID due to increased sedation), haldol prn for agitation - violent restraint downgraded to non-violent restraints, wean as behavior improves - psych on board, recs appreciated #Constipation- - Resolved - he has had a bowel movement - will continue stool softener given some residual stool in the colon #COPD exacerbation- - resolved - Continue albuterol sulfate HFA 2 puffs 4 times daily, every 2 hours as needed - Continue Mucinex 600 mg p.o. every 12 hours - DuoNebs every 2 hours as needed - Respiratory BioFire test negative #Tobacco use disorder- - Recently discontinued cigarette use. - Tobacco sensation encouraged. - He reports that he did stop smoking on 10/01/2024, just prior to office visit with Dr. Mario in the outpatient setting #BPH with LUTS- - UA negative - Patient notes decreased urinary output, dysuria, and decreased ability to start stream - cont tamsulosin 0.4 mg daily # Frequent falls - Has fallen a few times in the past - Lives alone - Not able to participate fully in PT because he was not following instructions - He is less impulsive today and may participate in PT #Ongoing medical issues: - Hypertension-continue olmesartan or substitute, - Allergic symptoms: Loratadine 10 mg daily as needed, fluticasone nasal spray 2 sprays each nostril daily - Ambulatory dysfunction- PT/OT on board - Prediabetes-glucose 97 on admission follow-up with regular morning laboratories Disposition: - patient has some dementia or at least cognitive impairment as corroborated by his daughter according to his daughter, he has become more confused and often drives several times a day to see her - He lives alone and has fallen a few times in the past - He is not a safe discharge home. - PT / OT on board - He may benefit from placement, although doubt if he will agree 10/24: updated pt's daughter Natalie Quintanilla ([phone]) Admission and Anticipated Discharge Date Admission Date: October 23, 2024 Subjective No acute events overnight He was downgraded from violent to non-violent restraints Currently, he is sleeping, easily arousable Review of Systems Review of Systems: Partial ROS completed which is negative Pt does not answer the questions at times Physical Exam Physical Exam: Gen: NAD, non-violent restraints, being restless in bed at times HEENT: NC/AT, dry MM Lungs: CTAB CVS: s1s2nl, RRR Abd: soft, NT, nl bowel sounds Ext: no edema, moving all extremities equally Neuro: drowsy this morning, but easily arousable Results & Data Results & Data Vital Signs (Past 12 Hours) Vital Signs Temp Pulse Resp BP Pulse Ox O2 Del Method 10/24/24 07:46 36.4 C L 79 20 187/74 H 95 Room Air PG Care Time/CCT Total # of Minutes Spent Total Time Spent with Patient: Total time spent is greater than 50% in coordination of care (as documented) at patient's floor/unit and/or counseling patient: Coding Level of Care Code 81054 SUB INP/OBS CARE 2/35MIN Diagnoses Constipation K59.00 COPD (chronic obstructive pulmonary disease) J44.9 Ambulatory dysfunction R26.2 Essential hypertension I10 BPH w urinary obs/LUTS N40.1; N13.8 Dementia F03.90
[2024-10-24] MEDS: QUEtiapine FUMARATE 25 MG TABLET PO SCH (10:17)
[2024-10-24] MEDS: POTASSIUM CHLORIDE CRTAB 20 MEQ TABCR PO SCH (11:43)
[2024-10-24] MEDS: MAGNESIUM OXIDE 400 MG TAB PO SCH (11:43)
[2024-10-24] MEDS: SODIUM CHLORIDE 0.9% 1,000 ML IV SCH (15:28)
[2024-10-25 07:48] LABS: Hematocrit (blood only) 40.2 % (42.0-52.0); Hemoglobin 13.7 g/dl (14.0-18.0); Mean Corpuscular Hgb Conc 34.1 g/dL (32.0-36.0); Mean Corpuscular Volume 93.9 fL (80.0-100.0); Mean Platelet Volume 9.1 fL (9.4-12.4); Platelet Count 234 K/uL (130-400); RDW Coefficient of Variation 14.1 % (11.5-14.5); RDW Standard Deviation 48.3 fL (36.4-46.3); Red Blood Count 4.28 M/uL (4.70-6.10); White Blood Count 9.91 K/ul (4.8-10.8)
[2024-10-25 08:01] LABS: BUN Creatinine Ratio 21.9 (10-20); Calcium 8.2 mg/dl (8.6-10.3); Creatinine Clr Calc Pharmacy 82.8 ml/min; Magnesium 1.7 mg/dl (1.7-2.4); Potassium 3.3 mmol/L (3.5-5.1)
[2024-10-25] MEDS ORDERED: ondansetron HCL 8 MG in DEXTROSE 5% 50 ML IV STA (09:57)
--- NOTE | 2024-10-25 16:16 | Hospitalist Progress Note ---
Date of Service October 25, 2024 Assessment & Plan (1) Constipation: (2) COPD (chronic obstructive pulmonary disease): (3) Ambulatory dysfunction: (4) Essential hypertension: (5) BPH w urinary obs/LUTS: (6) Dementia: Plan The patient is an 89-year-old male with past medical history including BPH with LUTS, tobacco use, prediabetes, hypertension, inferior nasal turbinate hypertrophy, esophageal stricture, hyperlipidemia, COPD, and allergic symptoms.The patient presents to the emergency department with complaint of shortness of breath, constipation, has not moved his bowels in over a week despite normal intake of liquids and solids. He has had difficulty with discomfort urinating, and starting his stream. He reports some generalized fatigue, weakness, and difficulty ambulating. He attributes his shortness of breath to abdominal distention and inability to take a deep breath. #Dementia #AMS / Agitation - resolved - suspect delirium - patient has some dementia or at least cognitive impairment as corroborated by his daughter - according to his daughter, he has become more confused and often drives several times a day to see her - He lives alone and has fallen a few times in the past - He is not a safe discharge home - currently no active evidence of infection - CT head if pt is not improving - abilify changed to seroquel hs + day time dosing per psyc (TID dose changed to BID due to increased sedation), haldol prn for agitation - currently off of restraints and sitter, cooperating well - psych on board, recs appreciated , will need to return this week to assess capacity #Blurry vision - describes long standing difficulty seeing - will need outpatient eye exam as pt states it has been several years since last exam #Constipation- - Resolved - he has had a bowel movement - will continue stool softener given some residual stool in the colon #COPD exacerbation- - resolved - Continue albuterol sulfate HFA 2 puffs 4 times daily, every 2 hours as needed - Continue Mucinex 600 mg p.o. every 12 hours - DuoNebs every 2 hours as needed - Respiratory BioFire test negative #Tobacco use disorder- - Recently discontinued cigarette use. - Tobacco sensation encouraged. - He reports that he did stop smoking on 10/01/2024, just prior to office visit with Dr. Mario in the outpatient setting #BPH with LUTS- - UA negative - Patient notes decreased urinary output, dysuria, and decreased ability to start stream - cont tamsulosin 0.4 mg daily # Frequent falls - Has fallen a few times in the past - Lives alone - Not able to participate fully in PT because he was not following instructions - He is less impulsive today and may participate in PT #Ongoing medical issues: - Hypertension-continue olmesartan or substitute, - Allergic symptoms: Loratadine 10 mg daily as needed, fluticasone nasal spray 2 sprays each nostril daily - Ambulatory dysfunction- PT/OT on board - Prediabetes-glucose 97 on admission follow-up with regular morning laboratories Disposition: - patient has some dementia or at least cognitive impairment as corroborated by his daughter according to his daughter, he has become more confused and often drives several times a day to see her - He lives alone and has fallen a few times in the past - He is not a safe discharge home. - PT / OT on board - He may benefit from placement, although doubt if he will agree 10/24: updated pt's daughter Natalie Quintanilla ([phone]) Admission and Anticipated Discharge Date Admission Date: October 23, 2024 Subjective No acute events overnight Currently pt is off of 1:1 and without restraints He is very cooperative Review of Systems Review of Systems: Comprehensive ROS neg Physical Exam Physical Exam: Gen: NAD, sitting in chair HEENT: NC/AT, MMM Lungs: CTAB CVS: s1s2nl, RRR Abd: soft, NT, nl bowel sounds Ext: no edema, moving all extremities equally Neuro: awake and alerty Results & Data Results & Data Vital Signs (Past 12 Hours) Vital Signs Temp Pulse Resp BP BP Pulse Ox O2 Del Method 10/25/24 15:15 36.6 C 74 18 163/72 H 96 Room Air 10/25/24 06:25 37.1 C 75 16 162/73 H 93 Room Air PG Care Time/CCT Total # of Minutes Spent Total Time Spent with Patient: Total time spent is greater than 50% in coordination of care (as documented) at patient's floor/unit and/or counseling patient: Coding Level of Care Code 42746 SUB INP/OBS CARE 2/35MIN Diagnoses Constipation K59.00 COPD (chronic obstructive pulmonary disease) J44.9 Ambulatory dysfunction R26.2 Essential hypertension I10 BPH w urinary obs/LUTS N40.1; N13.8 Dementia F03.90
[2024-10-25] MEDS: POTASSIUM CHLORIDE CRTAB 20 MEQ TABCR PO ONE (17:48)
[2024-10-26 07:16] LABS: Hematocrit (blood only) 41.8 % (42.0-52.0); Hemoglobin 13.9 g/dl (14.0-18.0); Mean Corpuscular Hemoglobin 31.2 pg (25.0-34.0); Mean Corpuscular Hgb Conc 33.3 g/dL (32.0-36.0); Mean Corpuscular Volume 93.9 fL (80.0-100.0); Mean Platelet Volume 9.2 fL (9.4-12.4); Platelet Count 238 K/uL (130-400); RDW Coefficient of Variation 14.1 % (11.5-14.5); RDW Standard Deviation 48.7 fL (36.4-46.3); Red Blood Count 4.45 M/uL (4.70-6.10); White Blood Count 9.07 K/ul (4.8-10.8)
[2024-10-26 07:35] LABS: BUN Creatinine Ratio 21.1 (10-20); Calcium 8.5 mg/dl (8.6-10.3); Creatinine Clr Calc Pharmacy 69.7 ml/min; Magnesium 1.8 mg/dl (1.7-2.4); Phosphorus 2.9 mg/dl (2.5-4.9); Potassium 3.7 mmol/L (3.5-5.1)
--- NOTE | 2024-10-26 17:09 | Hospitalist Progress Note ---
Date of Service October 26, 2024 Assessment & Plan (1) Constipation: (2) COPD (chronic obstructive pulmonary disease): (3) Ambulatory dysfunction: (4) Essential hypertension: (5) BPH w urinary obs/LUTS: (6) Dementia: Plan The patient is an 89-year-old male with past medical history including BPH with LUTS, tobacco use, prediabetes, hypertension, inferior nasal turbinate hypertrophy, esophageal stricture, hyperlipidemia, COPD, and allergic symptoms.The patient presents to the emergency department with complaint of shortness of breath, constipation, has not moved his bowels in over a week despite normal intake of liquids and solids. He has had difficulty with discomfort urinating, and starting his stream. He reports some generalized fatigue, weakness, and difficulty ambulating. He attributes his shortness of breath to abdominal distention and inability to take a deep breath. #Dementia #AMS / Agitation - resolved - suspect delirium - patient has some dementia or at least cognitive impairment as corroborated by his daughter - according to his daughter, he has become more confused and often drives several times a day to see her - He lives alone and has fallen a few times in the past - He is not a safe discharge home - currently no active evidence of infection - CT head if pt is not improving - abilify changed to seroquel hs + day time dosing per psyc (TID dose changed to BID due to increased sedation), haldol prn for agitation - currently off of restraints and sitter, cooperating well - psych on board, recs appreciated , will need to return this week to assess capacity #Blurry vision - describes long standing difficulty seeing - will need outpatient eye exam as pt states it has been several years since last exam #Constipation- - Resolved - he has had a bowel movement - will continue stool softener given some residual stool in the colon #COPD exacerbation- - resolved - Continue albuterol sulfate HFA 2 puffs 4 times daily, every 2 hours as needed - Continue Mucinex 600 mg p.o. every 12 hours - DuoNebs every 2 hours as needed - Respiratory BioFire test negative #Tobacco use disorder- - Recently discontinued cigarette use. - Tobacco sensation encouraged. - He reports that he did stop smoking on 10/01/2024, just prior to office visit with Dr. Mario in the outpatient setting #BPH with LUTS- - UA negative - Patient notes decreased urinary output, dysuria, and decreased ability to start stream - cont tamsulosin 0.4 mg daily # Frequent falls - Has fallen a few times in the past - Lives alone - Not able to participate fully in PT because he was not following instructions - He is less impulsive today and may participate in PT #Ongoing medical issues: - Hypertension-continue olmesartan or substitute, - Allergic symptoms: Loratadine 10 mg daily as needed, fluticasone nasal spray 2 sprays each nostril daily - Ambulatory dysfunction- PT/OT on board - Prediabetes-glucose 97 on admission follow-up with regular morning laboratories Disposition: - patient has some dementia or at least cognitive impairment as corroborated by his daughter according to his daughter, he has become more confused and often drives several times a day to see her - He lives alone and has fallen a few times in the past - He is not a safe discharge home. - PT / OT on board - He may benefit from placement, although doubt if he will agree 10/24: updated pt's daughter Natalie Quintanilla ([phone]) Admission and Anticipated Discharge Date Admission Date: October 23, 2024 Subjective Patient was seen and examined at 10:40 AM. He did not have any new complaints. RN was present during the encounter Review of Systems Review of Systems: All systems reviewed & are unremarkable except as noted in Subjective Physical Exam Physical Exam: General: Awake, conversant. Pleasantly confused. AO x 2 Heart: S1, S2/regular rate and rhythm, no murmur rubs or gallops Lungs: Clear to auscultation bilaterally. Normal effort Abdomen: Soft/nontender/nondistended. No hepatosplenomegaly Extremities: No clubbing/cyanosis. No edema Behavior: Appropriate, cooperative during my encounter Results & Data Results & Data Vital Signs (Past 12 Hours) Vital Signs Temp Pulse Resp BP Pulse Ox O2 Del Method 10/26/24 14:14 36.8 C 74 16 140/63 95 Room Air 10/26/24 09:56 Room Air 10/26/24 06:53 36.5 C 84 16 174/73 H 94 Room Air Laboratory Results Abnormal lab results 10/26/24 Range/Units 06:21 RBC 4.45 L (4.70-6.10) M/uL Hgb 13.9 L (14.0-18.0) g/dl Hct 41.8 L (42.0-52.0) % RDW Std Deviation 48.7 H (36.4-46.3) fL MPV 9.2 L (9.4-12.4) fL BUN/Creatinine Ratio 21.1 H (10-20) Glucose 125 H (70-99(Fasting)) mg/dl Calcium 8.5 L (8.6-10.3) mg/dl PG Care Time/CCT Total # of Minutes Spent Total Time Spent with Patient: Total time spent is greater than 50% in coordination of care (as documented) at patient's floor/unit and/or counseling patient: Coding Level of Care Code 73080 SUB INP/OBS CARE 2/35MIN Diagnoses Constipation K59.00 COPD (chronic obstructive pulmonary disease) J44.9 Ambulatory dysfunction R26.2 Essential hypertension I10 BPH w urinary obs/LUTS N40.1; N13.8 Dementia F03.90
--- NOTE | 2024-10-27 16:59 | Hospitalist Progress Note ---
Date of Service October 27, 2024 Assessment & Plan (1) Constipation: (2) COPD (chronic obstructive pulmonary disease): (3) Ambulatory dysfunction: (4) Essential hypertension: (5) BPH w urinary obs/LUTS: (6) Dementia: Plan The patient is an 89-year-old male with past medical history including BPH with LUTS, tobacco use, prediabetes, hypertension, inferior nasal turbinate hypertrophy, esophageal stricture, hyperlipidemia, COPD, and allergic symptoms.The patient presents to the emergency department with complaint of shortness of breath, constipation, has not moved his bowels in over a week despite normal intake of liquids and solids. He has had difficulty with discomfort urinating, and starting his stream. He reports some generalized fatigue, weakness, and difficulty ambulating. He attributes his shortness of breath to abdominal distention and inability to take a deep breath. #Dementia #AMS / Agitation - resolved - suspect delirium - patient has some dementia or at least cognitive impairment as corroborated by his daughter - according to his daughter, he has become more confused and often drives several times a day to see her - He lives alone and has fallen a few times in the past - He is not a safe discharge home - currently no active evidence of infection - CT head if pt is not improving - abilify changed to seroquel hs + day time dosing per psyc (TID dose changed to BID due to increased sedation), haldol prn for agitation - currently off of restraints and sitter, cooperating well - psych on board, recs appreciated , will need to return this week to assess capacity. [facility] [employer] #Blurry vision - describes long standing difficulty seeing - will need outpatient eye exam as pt states it has been several years since last exam #Constipation- - Resolved - he has had a bowel movement - will continue stool softener given some residual stool in the colon #COPD exacerbation- - resolved - Continue albuterol sulfate HFA 2 puffs 4 times daily, every 2 hours as needed - Continue Mucinex 600 mg p.o. every 12 hours - DuoNebs every 2 hours as needed - Respiratory BioFire test negative #Tobacco use disorder- - Recently discontinued cigarette use. - Tobacco sensation encouraged. - He reports that he did stop smoking on 10/01/2024, just prior to office visit with Dr. Mario in the outpatient setting #BPH with LUTS- - UA negative - Patient notes decreased urinary output, dysuria, and decreased ability to start stream - cont tamsulosin 0.4 mg daily # Frequent falls - Has fallen a few times in the past - Lives alone - Not able to participate fully in PT because he was not following instructions - He is less impulsive today and may participate in PT #Ongoing medical issues: - Hypertension-continue olmesartan or substitute, - Allergic symptoms: Loratadine 10 mg daily as needed, fluticasone nasal spray 2 sprays each nostril daily - Ambulatory dysfunction- PT/OT on board - Prediabetes-glucose 97 on admission follow-up with regular morning laboratories Disposition: - patient has some dementia or at least cognitive impairment as corroborated by his daughter according to his daughter, he has become more confused and often drives several times a day to see her - He lives alone and has fallen a few times in the past - He is not a safe discharge home. - PT / OT on board - He may benefit from placement, although doubt if he will agree 10/24: updated pt's daughter Natalie Quintanilla ([phone]) 10/27: updated daughter Yoko Admission and Anticipated Discharge Date Admission Date: October 23, 2024 Subjective Patient was seen and examined at 11:40 AM. The nurse and the patient's daughter were at the bedside during the encounter. Patient did not complain of any symptoms of chest pain or shortness of breath. He stated that he feels like his brain is foggy. He was able to answer some of the questions correctly but not all. Review of Systems Review of Systems: All systems reviewed & are unremarkable except as noted in Subjective Physical Exam Physical Exam: General: Awake, conversant. Pleasantly confused. AO x 2 Heart: S1, S2/regular rate and rhythm, no murmur rubs or gallops Lungs: Clear to auscultation bilaterally. Normal effort Abdomen: Soft/nontender/nondistended. No hepatosplenomegaly Extremities: No clubbing/cyanosis. No edema Behavior: Appropriate, cooperative during my encounter Results & Data Results & Data Vital Signs (Past 12 Hours) Vital Signs Temp Pulse Resp BP Pulse Ox O2 Del Method 10/27/24 14:19 36.6 C 76 16 137/66 97 Room Air 10/27/24 09:32 Room Air 10/27/24 07:10 36.9 C 76 16 162/70 H 97 Room Air PG Care Time/CCT Total # of Minutes Spent Total Time Spent with Patient: Total time spent is greater than 50% in coordination of care (as documented) at patient's floor/unit and/or counseling patient: Coding Level of Care Code 18166 SUB INP/OBS CARE 2/35MIN Diagnoses Constipation K59.00 COPD (chronic obstructive pulmonary disease) J44.9 Ambulatory dysfunction R26.2 Essential hypertension I10 BPH w urinary obs/LUTS N40.1; N13.8 Dementia F03.90
[2024-10-27] MEDS: HALOPERIDOL LACTATE 5 MG/ML 1 ML VIAL IM PRN (20:56)
--- NOTE | 2024-10-28 15:40 | Psychiatric Progress Note ---
Date of Service October 28, 2024 Impression / Recommendations Impression Diagnostically encephalopathy/delirium versus advancing dementia. Family collateral suggests likely chronic worsening of cognitive decline over recent months. At this time he is lacking dispositional decision making capacity due to lack of orientation and inability to speak to even his basic needs. He could not participate with full decision making capacity assessment (potentially due to some lingering hypoactive delirium?) and continues to require assistance with basic ADLs. Encouragingly he has not required any recent IM/IV medications for agitation and previous bizarre behaviors seem to be improving since addition of Seroquel. In terms of decision making capacity it is foremost critical to emphasis that this assessment is task specific, dimensional and DOES NOT REPRESENT NOR CAN IT BE USED A MEANS OF ASSESSING GLOBAL LEGAL COMPETENCY OR NEED FOR GUARDIANSHIP. A LEGAL COMPETENCY ASSESSMENT IS SEPARATE, DISTINCT AND REQUIRES EXTENSIVE EVALUATION TYPICALLY TO INCLUDE FORMAL COGNITIVE ASSESSMENTS INCLUDING NEUROPSYCHOLOGICAL and IQ TESTING, DISCUSSION WITH LONGITUDINAL ASSOCIATES AND PROVIDERS WHO HAVE KNOWN A PATIENT OVER A PERIOD OF MONTHS OR YEARS, COMPREHENSIVE INTERVIEWS AND GENERALLY INVOLVEMENT OF SPECIALIZED FORENSIC PSYCHOLOGISTS OR PSYCHIATRISTS. Assessment of Decision-Making Capacity Criterion (X=present) Patient Task LACKS Communicates a choice Patient is able to clearly indicate preferred treatment option in a clear and consistent manner-NO LACKS Understands information provided Patient understands their condition and treatment options-NO LACKS Appreciates consequences Patient shows appropriately nuanced appreciation for the risks & benefits associated with available treatment options, including no treatment-NO LACKS Manipulates relevant information Patient able to rationally weigh risks & benefits, as well as offer reasons for their decision-NO The patient's decision making capacity could change in the future given that their mental status and various other factors can certainly fluctuate over time. Overall, I spent a total of 45 minutes with this case including review of chart records, review of labwork, direct evaluation of the patient at bedside, counseling the patient, discussion of the patient with the Nurse and with the hospitalist provider, discussion with the psychiatric liason during clinical rounds, review of collateral historian information from the family and documentation in the electronic health record. (1) Cognitive impairment: (2) Altered mental status: History of episodes of confusion. Plan 10/28/2024: Continue current medications Not felt to have dispositional decision making capacity at this time. 10/23/2024: Delirium workup: CBC, CXR, UA, CMP, unremarkable. Biofire negative 10/22/24. Consider cranial imaging. Continue sitter, laura restraints as needed. Initiate delirium nursing protocols; frequent reorientation to time, place, person, turn off the tv, lavender oils. Avoid sedatives, hypnotics, benzodiazepines and anticholinergic agents as may worsen cognitive impairment, increase risk of falls. D/C Abilify. Recommend Seroquel 12.5mg tid + 50 mg qhs. For agitation, recommend Haldol 2mg po/im q 6 hrs prn. Monitor EKG. Consult neurology if medical workup is unrevealing. Psych will reassess. Interval History Identifying Information 89-year-old male who lives alone in [place], [place]. Pt has a past medical history of BPH with LUTS, tobacco use, prediabetes, hypertension, inferior nasal turbinate hypertrophy, esophageal stricture, hyperlipidemia, COPD, and allergic symptoms. He also has some dementia or at least cognitive impairment and confusion, per hospitalist note. Psychiatry consulted for dispositional decision making capacity. Chief Complaint "That's a good question". Subjective Subjective Patient was seen & assessed and interval progress reviewed. Has been adherent with medications. His daughter expressed concern to CM about lack of POA and wondering about guardianship/placement options due to concerns that he was not functioning well at home and family has concerns for his ability to be safe on his own. Per conversation with RN he remains frequently disoriented, recently thought in was in [facility]. At times touching RNs inappropriately. Requires assistance to use the bathroom, requires assistance selecting menu items for his meals. Today he is sleeping but awakens with prompting, knows the month and year but doesn't know the city or where he is (i.e. hospital). Asked about where we are/what place this is he notes "that's a good question", thinks for some time and states "I'm trying to think of it" and "I'm not sure". He's unable to participate with MOCA. Physical Exam Vital Signs (Past 24 Hours) Last Vital Signs Temp 36.8 C 10/28/24 15:06 Pulse 84 10/28/24 15:06 Resp 20 10/28/24 15:06 BP 169/81 H 10/28/24 15:06 Pulse Ox 96 10/28/24 15:06 O2 Del Method Room Air 10/28/24 15:06 Results & Data ([facility]) Current Inpatient Medications Current Inpatient Medications: Current Inpatient Medications Acetaminophen (Acetaminophen 500 Mg Tab) 500 mg PO Q6H PRN PRN Reason: Pain or Fever Stop: 11/20/24 07:09 Last Admin: 10/26/24 02:00 Dose: 500 mg Albuterol (Albut/Ipratrop 3mg/0.5mg Neb 3 Ml Vial) 3 ml NEB Q2H PRN; Protocol PRN Reason: dyspnea Stop: 11/20/24 07:09 Albuterol (Albuterol Hfa 8 Gm Inhaler) 2 puffs INH Q2H PRN PRN Reason: Shortness Of Breath Or Wheezing Stop: 11/20/24 07:22 Bisacodyl (Bisacodyl 10 Mg Supp) 10 mg KS DAILY PRN PRN Reason: Constipation Stop: 11/20/24 07:09 Docusate Sodium (Docusate Sodium 100 Mg Cap) 100 mg PO BID [facility] Stop: 11/20/24 08:59 Last Admin: 10/28/24 09:31 Dose: 100 mg Fluticasone Propionate (Fluticasone Propionate Na Spr 16 Gm Btl) 2 sprays ALISA DAILY [facility] Stop: 11/20/24 08:59 Last Admin: 10/28/24 09:28 Dose: 2 sprays Guaifenesin (Guaifenesin 600 Mg Tabcr) 600 mg PO Q12 [facility]ERI Stop: 11/20/24 08:59 Last Admin: 10/28/24 09:29 Dose: 600 mg Haloperidol Lactate (Haloperidol Lactate 5 Mg/Ml 1 Ml Vial) 2 mg IM Q6H PRN PRN Reason: Agitation Stop: 11/22/24 16:22 Last Admin: 10/27/24 20:56 Dose: 2 mg Heparin Sodium (Porcine) (Heparin Sod 5,000 Unit/0.5 Ml Vial) 5,000 units SQ Q12 NERI Stop: 11/20/24 08:59 Last Admin: 10/28/24 09:31 Dose: 5,000 units Lidocaine (Lidocaine 5% 1 Patch) 1 patch TD QAM [facility]ERI Stop: 11/22/24 08:59 Last Admin: 10/28/24 09:29 Dose: 1 patch Loratadine (Loratadine 10 Mg Tab) 10 mg PO DAILY PRN PRN Reason: allergy symptoms Stop: 11/20/24 07:09 Losartan Potassium (Losartan Potassium 50 Mg Tab) 50 mg PO DAILY [facility]; Protocol Stop: 11/20/24 08:59 Last Admin: 10/28/24 09:28 Dose: 50 mg Melatonin (Melatonin 3 Mg Tab) 6 mg PO HS PRN PRN Reason: Sleep Stop: 11/21/24 00:25 Last Admin: 10/27/24 19:55 Dose: 6 mg Miscellaneous (Remove Lidoderm Patch) 1 each N/A DAILY@2100 [facility] Stop: 11/22/24 20:59 Last Admin: 10/27/24 19:55 Dose: Not Given Polyethylene Glycol (Polyethylene (Miralax) 17 Gm Pack) 17 gm PO DAILY PRN PRN Reason: Constipation Stop: 11/20/24 07:09 Psyllium Hydrophilic Mucilloid (Psyllium Or Guar Gum Fiber 4gm Packet) 4 gm PO DAILY [facility] Stop: 11/20/24 08:59 Last Admin: 10/28/24 09:29 Dose: 4 gm Quetiapine Fumarate (Quetiapine Fumarate 25 Mg Tablet) 50 mg PO HS [facility] Stop: 11/22/24 20:59 Last Admin: 10/27/24 19:53 Dose: 50 mg Quetiapine Fumarate (Quetiapine Fumarate 25 Mg Tablet) 12.5 mg PO BID17 [facility] Stop: 11/23/24 09:14 Last Admin: 10/28/24 09:29 Dose: 12.5 mg Tamsulosin HCl (Tamsulosin Hcl 0.4 Mg Cap) 0.4 mg PO QAM [facility] Stop: 11/20/24 08:59 Last Admin: 10/28/24 09:29 Dose: 0.4 mg (2) Altered mental status Altered mental status type: delirium Qualified Code(s): R41.0 - Disorientation, unspecified
--- NOTE | 2024-10-28 15:49 | Hospitalist Progress Note ---
Date of Service October 28, 2024 Assessment & Plan (1) Constipation: (2) COPD (chronic obstructive pulmonary disease): (3) Ambulatory dysfunction: (4) Essential hypertension: (5) BPH w urinary obs/LUTS: (6) Dementia: Plan The patient is an 89-year-old male with past medical history including BPH with LUTS, tobacco use, prediabetes, hypertension, inferior nasal turbinate hypertrophy, esophageal stricture, hyperlipidemia, COPD, and allergic symptoms.The patient presents to the emergency department with complaint of shortness of breath, constipation, has not moved his bowels in over a week despite normal intake of liquids and solids. He has had difficulty with discomfort urinating, and starting his stream. He reports some generalized fatigue, weakness, and difficulty ambulating. He attributes his shortness of breath to abdominal distention and inability to take a deep breath. #Dementia #AMS / Agitation - resolved - suspect delirium - patient has some dementia or at least cognitive impairment as corroborated by his daughter - according to his daughter, he has become more confused and often drives several times a day to see her - He lives alone and has fallen a few times in the past - He is not a safe discharge home - currently no active evidence of infection - CT head if pt is not improving - abilify changed to seroquel hs + day time dosing per psyc (TID dose changed to BID due to increased sedation), haldol prn for agitation - currently off of restraints and sitter, cooperating well - psych on board. Per psych eval, patient does not have a capacity to make decisions. #Blurry vision - describes long standing difficulty seeing - will need outpatient eye exam as pt states it has been several years since last exam #Constipation- - Resolved - he has had a bowel movement - will continue stool softener given some residual stool in the colon #COPD exacerbation- - resolved - Continue albuterol sulfate HFA 2 puffs 4 times daily, every 2 hours as needed - Continue Mucinex 600 mg p.o. every 12 hours - DuoNebs every 2 hours as needed - Respiratory BioFire test negative #Tobacco use disorder- - Recently discontinued cigarette use. - Tobacco sensation encouraged. - He reports that he did stop smoking on 10/01/2024, just prior to office visit with Dr. Mario in the outpatient setting #BPH with LUTS- - UA negative - Patient notes decreased urinary output, dysuria, and decreased ability to start stream - cont tamsulosin 0.4 mg daily # Frequent falls - Has fallen a few times in the past - Lives alone - Not able to participate fully in PT because he was not following instructions - He is less impulsive today and may participate in PT #Ongoing medical issues: - Hypertension-continue olmesartan or substitute, - Allergic symptoms: Loratadine 10 mg daily as needed, fluticasone nasal spray 2 sprays each nostril daily - Ambulatory dysfunction- PT/OT on board - Prediabetes-glucose 97 on admission follow-up with regular morning laboratories Disposition: - patient has some dementia or at least cognitive impairment as corroborated by his daughter according to his daughter, he has become more confused and often drives several times a day to see her - He lives alone and has fallen a few times in the past - He is not a safe discharge home. - PT / OT on board -PT/OT recommends placement Patient is deemed incapacitated to make decisions about disposition next Case management to follow 10/24: updated pt's daughter Natalie Quintanilla ([phone]) 10/27: updated daughter Yoko Admission and Anticipated Discharge Date Admission Date: October 23, 2024 Subjective Patient was seen and examined at 11 AM. ANA Pandey was present during my encounter. Patient did not report any new complaints. RN did not report any new issues. Patient has been confused Review of Systems Review of Systems: Unobtainable due to cognitive status Physical Exam Physical Exam: General: Awake, conversant. Pleasantly confused. AO x 2 Heart: S1, S2/regular rate and rhythm, no murmur rubs or gallops Lungs: Clear to auscultation bilaterally. Normal effort Abdomen: Soft/nontender/nondistended. No hepatosplenomegaly Extremities: No clubbing/cyanosis. No edema Behavior: Appropriate, cooperative during my encounter Results & Data Results & Data Vital Signs (Past 12 Hours) Vital Signs Temp Pulse Resp BP BP Pulse Ox O2 Del Method 10/28/24 15:06 36.8 C 84 20 169/81 H 96 Room Air 10/28/24 10:21 Room Air 10/28/24 07:08 36.9 C 82 20 174/82 H 171/83 H 94 Room Air PG Care Time/CCT Total # of Minutes Spent Total Time Spent with Patient: Total time spent is greater than 50% in coordination of care (as documented) at patient's floor/unit and/or counseling patient: Coding Level of Care Code 36572 SUB INP/OBS CARE 2/35MIN Diagnoses Constipation K59.00 COPD (chronic obstructive pulmonary disease) J44.9 Ambulatory dysfunction R26.2 Essential hypertension I10 BPH w urinary obs/LUTS N40.1; N13.8 Dementia F03.90
--- NOTE | 2024-10-29 15:14 | Hospitalist Progress Note ---
Date of Service October 29, 2024 Assessment & Plan (1) Constipation: (2) COPD (chronic obstructive pulmonary disease): (3) Ambulatory dysfunction: (4) Essential hypertension: (5) BPH w urinary obs/LUTS: (6) Dementia: Plan The patient is an 89-year-old male with past medical history including BPH with LUTS, tobacco use, prediabetes, hypertension, inferior nasal turbinate hypertrophy, esophageal stricture, hyperlipidemia, COPD, and allergic symptoms.The patient presents to the emergency department with complaint of shortness of breath, constipation, has not moved his bowels in over a week despite normal intake of liquids and solids. He has had difficulty with discomfort urinating, and starting his stream. He reports some generalized fatigue, weakness, and difficulty ambulating. He attributes his shortness of breath to abdominal distention and inability to take a deep breath. #Dementia #AMS / Agitation - resolved - suspect delirium - patient has some dementia or at least cognitive impairment as corroborated by his daughter - according to his daughter, he has become more confused and often drives several times a day to see her - He lives alone and has fallen a few times in the past - He is not a safe discharge home - currently no active evidence of infection - CT head if pt is not improving - abilify changed to seroquel hs + day time dosing per psyc (TID dose changed to BID due to increased sedation), haldol prn for agitation - currently off of restraints and sitter, cooperating well - psych on board. Per psych eval, patient does not have a capacity to make decisions. Case management working on placement #Blurry vision - describes long standing difficulty seeing - will need outpatient eye exam as pt states it has been several years since last exam #Constipation- - Resolved - he has had a bowel movement - will continue stool softener given some residual stool in the colon #COPD exacerbation- - resolved - Continue albuterol sulfate HFA 2 puffs 4 times daily, every 2 hours as needed - Continue Mucinex 600 mg p.o. every 12 hours - DuoNebs every 2 hours as needed - Respiratory BioFire test negative #Tobacco use disorder- - Recently discontinued cigarette use. - Tobacco sensation encouraged. - He reports that he did stop smoking on 10/01/2024, just prior to office visit with Dr. Mario in the outpatient setting #BPH with LUTS- - UA negative - Patient notes decreased urinary output, dysuria, and decreased ability to start stream - cont tamsulosin 0.4 mg daily # Frequent falls - Has fallen a few times in the past - Lives alone - Not able to participate fully in PT because he was not following instructions #Ongoing medical issues: - Hypertension-continue olmesartan or substitute, - Allergic symptoms: Loratadine 10 mg daily as needed, fluticasone nasal spray 2 sprays each nostril daily - Ambulatory dysfunction- PT/OT on board - Prediabetes-glucose 97 on admission follow-up with regular morning laboratories Disposition: - patient has some dementia or at least cognitive impairment as corroborated by his daughter according to his daughter, he has become more confused and often drives several times a day to see her - He lives alone and has fallen a few times in the past - He is not a safe discharge home. - PT / OT on board -PT/OT recommends placement Patient is deemed incapacitated to make decisions about disposition next Case management to follow 10/24: updated pt's daughter Natalie Quintanilla ([phone]) 10/27: updated daughter Yoko Admission and Anticipated Discharge Date Admission Date: October 23, 2024 Subjective Patient was seen and examined at 10:40 AM. No new complaints. Review of Systems Review of Systems: Unobtainable due to cognitive status Physical Exam Physical Exam: General: Awake, conversant. Pleasantly confused. AO x 2 Heart: S1, S2/regular rate and rhythm, no murmur rubs or gallops Lungs: Clear to auscultation bilaterally. Normal effort Abdomen: Soft/nontender/nondistended. No hepatosplenomegaly Extremities: No clubbing/cyanosis. No edema Behavior: Appropriate, cooperative during my encounter Results & Data Results & Data Vital Signs (Past 12 Hours) Vital Signs Temp Pulse Resp BP Pulse Ox O2 Del Method 10/29/24 07:17 36.6 C 91 H 18 173/81 H 95 Room Air PG Care Time/CCT Total # of Minutes Spent Total Time Spent with Patient: Total time spent is greater than 50% in coordination of care (as documented) at patient's floor/unit and/or counseling patient: Coding Level of Care Code 56311 SUB INP/OBS CARE 2/35MIN Diagnoses Constipation K59.00 COPD (chronic obstructive pulmonary disease) J44.9 Ambulatory dysfunction R26.2 Essential hypertension I10 BPH w urinary obs/LUTS N40.1; N13.8 Dementia F03.90
--- NOTE | 2024-10-30 14:25 | Hospitalist Progress Note ---
Date of Service October 30, 2024 Assessment & Plan (1) Constipation: (2) COPD (chronic obstructive pulmonary disease): (3) Ambulatory dysfunction: (4) Essential hypertension: (5) BPH w urinary obs/LUTS: (6) Dementia: Plan The patient is an 89-year-old male with past medical history including BPH with LUTS, tobacco use, prediabetes, hypertension, inferior nasal turbinate hypertrophy, esophageal stricture, hyperlipidemia, COPD, and allergic symptoms.The patient presents to the emergency department with complaint of shortness of breath, constipation, has not moved his bowels in over a week despite normal intake of liquids and solids. He has had difficulty with discomfort urinating, and starting his stream. He reports some generalized fatigue, weakness, and difficulty ambulating. He attributes his shortness of breath to abdominal distention and inability to take a deep breath. #Dementia #AMS / Agitation - resolved - suspect delirium - patient has some dementia or at least cognitive impairment as corroborated by his daughter - according to his daughter, he has become more confused and often drives several times a day to see her - He lives alone and has fallen a few times in the past - He is not a safe discharge home - currently no active evidence of infection - CT head if pt is not improving - abilify changed to seroquel hs + day time dosing per psyc (TID dose changed to BID due to increased sedation), haldol prn for agitation - currently off of restraints and sitter, cooperating well - psych on board. Per psych eval, patient does not have a capacity to make decisions. Case management working on placement #Blurry vision - describes long standing difficulty seeing - will need outpatient eye exam as pt states it has been several years since last exam #Constipation- - Resolved - he has had a bowel movement - will continue stool softener given some residual stool in the colon #COPD exacerbation- - resolved - Continue albuterol sulfate HFA 2 puffs 4 times daily, every 2 hours as needed - Continue Mucinex 600 mg p.o. every 12 hours - DuoNebs every 2 hours as needed - Respiratory BioFire test negative #Hypertension Noted that blood pressure has been running high On 50 mg of losartan Increased to 100 mg of losartan #Tobacco use disorder- - Recently discontinued cigarette use. - Tobacco sensation encouraged. - He reports that he did stop smoking on 10/01/2024, just prior to office visit with Dr. Mario in the outpatient setting #BPH with LUTS- - UA negative - Patient notes decreased urinary output, dysuria, and decreased ability to start stream - cont tamsulosin 0.4 mg daily # Frequent falls - Has fallen a few times in the past - Lives alone - Not able to participate fully in PT because he was not following instructions #Ongoing medical issues: - Hypertension-continue olmesartan or substitute, - Allergic symptoms: Loratadine 10 mg daily as needed, fluticasone nasal spray 2 sprays each nostril daily - Ambulatory dysfunction- PT/OT on board - Prediabetes-glucose 97 on admission follow-up with regular morning laboratories Disposition: - patient has some dementia or at least cognitive impairment as corroborated by his daughter according to his daughter, he has become more confused and often drives several times a day to see her - He lives alone and has fallen a few times in the past - He is not a safe discharge home. - PT / OT on board -PT/OT recommends placement Patient is deemed incapacitated to make decisions about disposition next Case management to follow 10/24: updated pt's daughter Natalie Quintanilla ([phone]) 10/27: updated daughter Yoko Admission and Anticipated Discharge Date Admission Date: October 23, 2024 Subjective Patient was seen and examined at 11:45 AM. Denied chest pain or shortness of breath. Review of Systems Review of Systems: All systems reviewed & are unremarkable except as noted in Subjective Physical Exam Physical Exam: General: Awake, conversant. Pleasantly confused. AO x 2 Heart: S1, S2/regular rate and rhythm, no murmur rubs or gallops Lungs: Clear to auscultation bilaterally. Normal effort Abdomen: Soft/nontender/nondistended. No hepatosplenomegaly Extremities: No clubbing/cyanosis. No edema Behavior: Appropriate, cooperative during my encounter Results & Data Results & Data Vital Signs (Past 12 Hours) Vital Signs Temp Pulse Resp BP Pulse Ox O2 Del Method 10/30/24 07:41 Room Air 10/30/24 07:01 36.7 C 78 18 183/83 H 95 Room Air PG Care Time/CCT Total # of Minutes Spent Total Time Spent with Patient: Total time spent is greater than 50% in coordination of care (as documented) at patient's floor/unit and/or counseling patient: Coding Level of Care Code 43289 SUB INP/OBS CARE 235MIN Diagnoses Constipation K59.00 COPD (chronic obstructive pulmonary disease) J44.9 Ambulatory dysfunction R26.2 Essential hypertension I10 BPH w urinary obs/LUTS N40.1; N13.8 Dementia F03.90
[2024-10-30] MEDS: LOSARTAN POTASSIUM 50 MG TAB PO ONE (15:19)
[2024-10-31] MEDS: LOSARTAN POTASSIUM 50 MG TAB PO SCH (08:51)
--- NOTE | 2024-10-31 12:28 | Hospitalist Progress Note ---
Date of Service October 31, 2024 Assessment & Plan (1) Constipation: (2) COPD (chronic obstructive pulmonary disease): (3) Ambulatory dysfunction: (4) Essential hypertension: (5) BPH w urinary obs/LUTS: (6) Dementia: Plan The patient is an 89-year-old male with past medical history including BPH with LUTS, tobacco use, prediabetes, hypertension, inferior nasal turbinate hypertrophy, esophageal stricture, hyperlipidemia, COPD, and allergic symptoms.The patient presents to the emergency department with complaint of shortness of breath, constipation, has not moved his bowels in over a week despite normal intake of liquids and solids. He has had difficulty with discomfort urinating, and starting his stream. He reports some generalized fatigue, weakness, and difficulty ambulating. He attributes his shortness of breath to abdominal distention and inability to take a deep breath. #Dementia #AMS / Agitation - resolved - suspect delirium - patient has some dementia or at least cognitive impairment as corroborated by his daughter - according to his daughter, he has become more confused and often drives several times a day to see her - He lives alone and has fallen a few times in the past - He is not a safe discharge home - currently no active evidence of infection - CT head if pt is not improving - abilify changed to seroquel hs + day time dosing per psyc (TID dose changed to BID due to increased sedation), haldol prn for agitation - currently off of restraints and sitter, cooperating well - psych on board. Per psych eval, patient does not have a capacity to make decisions. Case management working on placement #Blurry vision - describes long standing difficulty seeing - will need outpatient eye exam as pt states it has been several years since last exam #Constipation- - Resolved - he has had a bowel movement - will continue stool softener given some residual stool in the colon #COPD exacerbation- - resolved - Continue albuterol sulfate HFA 2 puffs 4 times daily, every 2 hours as needed - Continue Mucinex 600 mg p.o. every 12 hours - DuoNebs every 2 hours as needed - Respiratory BioFire test negative #Hypertension Noted that blood pressure has been running high On 50 mg of losartan Increased to 100 mg of losartan Started amlodipine 10/31 #Tobacco use disorder- - Recently discontinued cigarette use. - Tobacco sensation encouraged. - He reports that he did stop smoking on 10/01/2024, just prior to office visit with Dr. Mario in the outpatient setting #BPH with LUTS- - UA negative - Patient notes decreased urinary output, dysuria, and decreased ability to start stream - cont tamsulosin 0.4 mg daily # Frequent falls - Has fallen a few times in the past - Lives alone - Not able to participate fully in PT because he was not following instructions #Ongoing medical issues: - Hypertension-continue olmesartan or substitute, - Allergic symptoms: Loratadine 10 mg daily as needed, fluticasone nasal spray 2 sprays each nostril daily - Ambulatory dysfunction- PT/OT on board - Prediabetes-glucose 97 on admission follow-up with regular morning laboratories Disposition: - patient has some dementia or at least cognitive impairment as corroborated by his daughter according to his daughter, he has become more confused and often drives several times a day to see her - He lives alone and has fallen a few times in the past - He is not a safe discharge home. - PT / OT on board -PT/OT recommends placement Patient is deemed incapacitated to make decisions about disposition next Case management to follow 10/24: updated pt's daughter Natalie Quintanilla ([phone]) 10/27: updated daughter Yoko Admission and Anticipated Discharge Date Admission Date: October 23, 2024 Physical Exam Physical Exam: General: Awake, conversant. Pleasantly confused. AO x 2 Heart: S1, S2/regular rate and rhythm, no murmur rubs or gallops Lungs: Clear to auscultation bilaterally. Normal effort Abdomen: Soft/nontender/nondistended. No hepatosplenomegaly Extremities: No clubbing/cyanosis. No edema Behavior: Appropriate, cooperative during my encounter Results & Data Results & Data Vital Signs (Past 12 Hours) Vital Signs Temp Pulse Resp BP Pulse Ox O2 Del Method 10/31/24 08:02 36.8 C 105 H 18 177/69 H 93 Room Air PG Care Time/CCT Total # of Minutes Spent Total Time Spent with Patient: Total time spent is greater than 50% in coordination of care (as documented) at patient's floor/unit and/or counseling patient: Coding Level of Care Code 19032 SUB INP/OBS CARE 2/35MIN Diagnoses Constipation K59.00 COPD (chronic obstructive pulmonary disease) J44.9 Ambulatory dysfunction R26.2 Essential hypertension I10 BPH w urinary obs/LUTS N40.1; N13.8 Dementia F03.90
[2024-10-31] MEDS: amLODIPine BESYLATE 5 MG TAB PO SCH (14:10)
--- NOTE | 2024-11-01 13:39 | Hospitalist Progress Note ---
Date of Service November 01, 2024 Assessment & Plan (1) Constipation: (2) COPD (chronic obstructive pulmonary disease): (3) Ambulatory dysfunction: (4) Essential hypertension: (5) BPH w urinary obs/LUTS: (6) Dementia: Plan The patient is an 89-year-old male with past medical history including BPH with LUTS, tobacco use, prediabetes, hypertension, inferior nasal turbinate hypertrophy, esophageal stricture, hyperlipidemia, COPD, and allergic symptoms.The patient presents to the emergency department with complaint of shortness of breath, constipation, has not moved his bowels in over a week despite normal intake of liquids and solids. He has had difficulty with discomfort urinating, and starting his stream. He reports some generalized fatigue, weakness, and difficulty ambulating. He attributes his shortness of breath to abdominal distention and inability to take a deep breath. #Dementia #AMS / Agitation - resolved - suspect delirium - patient has some dementia or at least cognitive impairment as corroborated by his daughter - according to his daughter, he has become more confused and often drives several times a day to see her - He lives alone and has fallen a few times in the past - He is not a safe discharge home - currently no active evidence of infection - CT head if pt is not improving - abilify changed to seroquel hs + day time dosing per psyc (TID dose changed to BID due to increased sedation), haldol prn for agitation - currently off of restraints and sitter, cooperating well - psych on board. Per psych eval, patient does not have a capacity to make decisions. Case management working on placement #Blurry vision - describes long standing difficulty seeing - will need outpatient eye exam as pt states it has been several years since last exam #Constipation- - Resolved - he has had a bowel movement - will continue stool softener given some residual stool in the colon #COPD exacerbation- - resolved - Continue albuterol sulfate HFA 2 puffs 4 times daily, every 2 hours as needed - Continue Mucinex 600 mg p.o. every 12 hours - DuoNebs every 2 hours as needed - Respiratory BioFire test negative #Hypertension Noted that blood pressure has been running high On 50 mg of losartan Increased to 100 mg of losartan Started amlodipine 10/31 Added hydrochlorothiazide 11/01 #Tobacco use disorder- - Recently discontinued cigarette use. - Tobacco sensation encouraged. - He reports that he did stop smoking on 10/01/2024, just prior to office visit with Dr. Mario in the outpatient setting #BPH with LUTS- - UA negative - Patient notes decreased urinary output, dysuria, and decreased ability to start stream - cont tamsulosin 0.4 mg daily # Frequent falls - Has fallen a few times in the past - Lives alone - Not able to participate fully in PT because he was not following instructions #Ongoing medical issues: - Hypertension-continue olmesartan or substitute, - Allergic symptoms: Loratadine 10 mg daily as needed, fluticasone nasal spray 2 sprays each nostril daily - Ambulatory dysfunction- PT/OT on board - Prediabetes-glucose 97 on admission follow-up with regular morning laboratories Disposition: - patient has some dementia or at least cognitive impairment as corroborated by his daughter according to his daughter, he has become more confused and often drives several times a day to see her - He lives alone and has fallen a few times in the past - He is not a safe discharge home. - PT / OT on board -PT/OT recommends placement Patient is deemed incapacitated to make decisions about disposition next Case management to follow 10/24: updated pt's daughter Natalie Quintanilla ([phone]) 10/27: updated daughter Yoko Admission and Anticipated Discharge Date Admission Date: October 23, 2024 Subjective Patient was seen and examined at 10:05 AM. He has no questions or concerns. Reports no chest pain or shortness of breath Review of Systems Review of Systems: All systems reviewed & are unremarkable except as noted in Subjective Physical Exam Physical Exam: General: Awake, conversant. Pleasantly confused. AO x 2 Heart: S1, S2/regular rate and rhythm, no murmur rubs or gallops Lungs: Clear to auscultation bilaterally. Normal effort Abdomen: Soft/nontender/nondistended. No hepatosplenomegaly Extremities: No clubbing/cyanosis. No edema Behavior: Appropriate, cooperative during my encounter Results & Data Results & Data Vital Signs (Past 12 Hours) Vital Signs Temp Pulse Resp BP Pulse Ox O2 Del Method 11/01/24 07:58 36.6 C 88 16 166/75 H 95 Room Air PG Care Time/CCT Total # of Minutes Spent Total Time Spent with Patient: Total time spent is greater than 50% in coordination of care (as documented) at patient's floor/unit and/or counseling patient: Coding Level of Care Code 31871 SUB INP/OBS CARE 2MIN Diagnoses Constipation K59.00 COPD (chronic obstructive pulmonary disease) J44.9 Ambulatory dysfunction R26.2 Essential hypertension I10 BPH w urinary obs/LUTS N40.1; N13.8 Dementia F03.90
[2024-11-01] MEDS: hydroCHLOROthiazide 25 MG TAB PO SCH (15:21)
[2024-11-02 08:00] LABS: BUN Creatinine Ratio 22.2 (10-20); Calcium 8.7 mg/dl (8.6-10.3); Creatinine Clr Calc Pharmacy 64.3 ml/min; Potassium 3.9 mmol/L (3.5-5.1)
--- NOTE | 2024-11-02 14:58 | Hospitalist Progress Note ---
Date of Service November 02, 2024 Assessment & Plan (1) Constipation: (2) COPD (chronic obstructive pulmonary disease): (3) Ambulatory dysfunction: (4) Essential hypertension: (5) BPH w urinary obs/LUTS: (6) Dementia: Plan The patient is an 89-year-old male with past medical history including BPH with LUTS, tobacco use, prediabetes, hypertension, inferior nasal turbinate hypertrophy, esophageal stricture, hyperlipidemia, COPD, and allergic symptoms.The patient presents to the emergency department with complaint of shortness of breath, constipation, has not moved his bowels in over a week despite normal intake of liquids and solids. He has had difficulty with discomfort urinating, and starting his stream. He reports some generalized fatigue, weakness, and difficulty ambulating. He attributes his shortness of breath to abdominal distention and inability to take a deep breath. #Dementia #AMS / Agitation - resolved - suspect delirium - patient has some dementia or at least cognitive impairment as corroborated by his daughter - according to his daughter, he has become more confused and often drives several times a day to see her - He lives alone and has fallen a few times in the past - He is not a safe discharge home - currently no active evidence of infection - CT head if pt is not improving - abilify changed to seroquel hs + day time dosing per psyc (TID dose changed to BID due to increased sedation), haldol prn for agitation - currently off of restraints and sitter, cooperating well - psych on board. Per psych eval, patient does not have a capacity to make decisions. Case management working on placement #Blurry vision - describes long standing difficulty seeing - will need outpatient eye exam as pt states it has been several years since last exam #Constipation- - Resolved - he has had a bowel movement - will continue stool softener given some residual stool in the colon #COPD exacerbation- - resolved - Continue albuterol sulfate HFA 2 puffs 4 times daily, every 2 hours as needed - Continue Mucinex 600 mg p.o. every 12 hours - DuoNebs every 2 hours as needed - Respiratory BioFire test negative #Hypertension Noted that blood pressure had been running high On 50 mg of losartan Increased to 100 mg of losartan Started amlodipine 10/31 Added hydrochlorothiazide 11/01 Blood pressure better controlled on this regimen. #Tobacco use disorder- - Recently discontinued cigarette use. - Tobacco sensation encouraged. - He reports that he did stop smoking on 10/01/2024, just prior to office visit with Dr. Mario in the outpatient setting #BPH with LUTS- - UA negative - Patient notes decreased urinary output, dysuria, and decreased ability to start stream - cont tamsulosin 0.4 mg daily # Frequent falls - Has fallen a few times in the past - Lives alone - Not able to participate fully in PT because he was not following instructions #Ongoing medical issues: - Hypertension-continue olmesartan or substitute, - Allergic symptoms: Loratadine 10 mg daily as needed, fluticasone nasal spray 2 sprays each nostril daily - Ambulatory dysfunction- PT/OT on board - Prediabetes-glucose 97 on admission follow-up with regular morning laboratories Disposition: - patient has some dementia or at least cognitive impairment as corroborated by his daughter according to his daughter, he has become more confused and often drives several times a day to see her - He lives alone and has fallen a few times in the past - He is not a safe discharge home. - PT / OT on board -PT/OT recommends placement Patient is deemed incapacitated to make decisions about disposition next Case management to follow 10/24: updated pt's daughter Natalie Quintanilla ([phone]) 10/27: updated daughter Yoko Admission and Anticipated Discharge Date Admission Date: October 23, 2024 Subjective Patient was seen and examined at 9:55 AM. No new issues. Review of Systems Review of Systems: All systems reviewed & are unremarkable except as noted in Subjective Physical Exam Physical Exam: General: Awake, conversant. Pleasantly confused. AO x 2 Heart: S1, S2/regular rate and rhythm, no murmur rubs or gallops Lungs: Clear to auscultation bilaterally. Normal effort Abdomen: Soft/nontender/nondistended. No hepatosplenomegaly Extremities: No clubbing/cyanosis. No edema Behavior: Appropriate, cooperative during my encounter Results & Data Results & Data Vital Signs (Past 12 Hours) Vital Signs Temp Pulse Resp BP Pulse Ox O2 Del Method 11/02/24 07:48 36.5 C 87 20 157/76 H 91 Room Air 11/02/24 07:17 Room Air Laboratory Results Abnormal lab results 11/02/24 Range/Units 07:12 BUN/Creatinine Ratio 22.2 H (10-20) PG Care Time/CCT Total # of Minutes Spent Total Time Spent with Patient: Total time spent is greater than 50% in coordination of care (as documented) at patient's floor/unit and/or counseling patient: Coding Level of Care Code 08475 SUB INP/OBS CARE 2/35MIN Diagnoses Constipation K59.00 COPD (chronic obstructive pulmonary disease) J44.9 Ambulatory dysfunction R26.2 Essential hypertension I10 BPH w urinary obs/LUTS N40.1; N13.8 Dementia F03.90
--- NOTE | 2024-11-03 14:10 | Hospitalist Progress Note ---
Date of Service November 03, 2024 Assessment & Plan (1) Constipation: (2) COPD (chronic obstructive pulmonary disease): (3) Ambulatory dysfunction: (4) Essential hypertension: (5) BPH w urinary obs/LUTS: (6) Dementia: Plan The patient is an 89-year-old male with past medical history including BPH with LUTS, tobacco use, prediabetes, hypertension, inferior nasal turbinate hypertrophy, esophageal stricture, hyperlipidemia, COPD, and allergic symptoms.The patient presents to the emergency department with complaint of shortness of breath, constipation, has not moved his bowels in over a week despite normal intake of liquids and solids. He has had difficulty with discomfort urinating, and starting his stream. He reports some generalized fatigue, weakness, and difficulty ambulating. He attributes his shortness of breath to abdominal distention and inability to take a deep breath. #Dementia #AMS / Agitation - resolved - suspect delirium - patient has some dementia or at least cognitive impairment as corroborated by his daughter - according to his daughter, he has become more confused and often drives several times a day to see her - He lives alone and has fallen a few times in the past - He is not a safe discharge home - currently no active evidence of infection - CT head if pt is not improving - abilify changed to seroquel hs + day time dosing per psyc (TID dose changed to BID due to increased sedation), haldol prn for agitation - currently off of restraints and sitter, cooperating well - psych on board. Per psych eval, patient does not have a capacity to make decisions. Case management working on placement #Blurry vision - describes long standing difficulty seeing - will need outpatient eye exam as pt states it has been several years since last exam #Constipation- - Resolved - he has had a bowel movement - will continue stool softener given some residual stool in the colon #COPD exacerbation- - resolved - Continue albuterol sulfate HFA 2 puffs 4 times daily, every 2 hours as needed - Continue Mucinex 600 mg p.o. every 12 hours - DuoNebs every 2 hours as needed - Respiratory BioFire test negative #Hypertension Noted that blood pressure had been running high On 50 mg of losartan Increased to 100 mg of losartan Started amlodipine 10/31 Added hydrochlorothiazide 11/01 Blood pressure better controlled on this regimen. #Tobacco use disorder- - Recently discontinued cigarette use. - Tobacco sensation encouraged. - He reports that he did stop smoking on 10/01/2024, just prior to office visit with Dr. Mario in the outpatient setting #BPH with LUTS- - UA negative - Patient notes decreased urinary output, dysuria, and decreased ability to start stream - cont tamsulosin 0.4 mg daily # Frequent falls - Has fallen a few times in the past - Lives alone - Not able to participate fully in PT because he was not following instructions #Ongoing medical issues: - Hypertension-continue olmesartan or substitute, - Allergic symptoms: Loratadine 10 mg daily as needed, fluticasone nasal spray 2 sprays each nostril daily - Ambulatory dysfunction- PT/OT on board - Prediabetes-glucose 97 on admission follow-up with regular morning laboratories Disposition: - patient has some dementia or at least cognitive impairment as corroborated by his daughter according to his daughter, he has become more confused and often drives several times a day to see her - He lives alone and has fallen a few times in the past - He is not a safe discharge home. - PT / OT on board -PT/OT recommends placement Patient is deemed incapacitated to make decisions about disposition next Case management to follow 10/24: updated pt's daughter Natalie Quintanilla ([phone]) 10/27: updated daughter Yoko 11/03. Family meeting held with showcase trimmer Admission and Anticipated Discharge Date Admission Date: October 23, 2024 Subjective Patient was seen and examined at 10:40 AM. Denied any chest pain or shortness of breath. Review of Systems Review of Systems: All systems reviewed & are unremarkable except as noted in Subjective Physical Exam Physical Exam: General: Awake, conversant. Pleasantly confused. AO x 2 Heart: S1, S2/regular rate and rhythm, no murmur rubs or gallops Lungs: Clear to auscultation bilaterally. Normal effort Abdomen: Soft/nontender/nondistended. No hepatosplenomegaly Extremities: No clubbing/cyanosis. No edema Behavior: Appropriate, cooperative during my encounter Results & Data Results & Data Vital Signs (Past 12 Hours) Vital Signs Temp Pulse Resp BP Pulse Ox O2 Del Method 11/03/24 07:49 36.8 C 79 18 125/74 94 Room Air 11/03/24 07:08 Room Air PG Care Time/CCT Total # of Minutes Spent Total Time Spent with Patient: Total time spent is greater than 50% in coordination of care (as documented) at patient's floor/unit and/or counseling patient: Coding Level of Care Code 16404 SUB INP/OBS CARE 235MIN Diagnoses Constipation K59.00 COPD (chronic obstructive pulmonary disease) J44.9 Ambulatory dysfunction R26.2 Essential hypertension I10 BPH w urinary obs/LUTS N40.1; N13.8 Dementia F03.90
[2024-11-03 20:09] LABS: Hematocrit (blood only) 43.7 % (42.0-52.0); Hemoglobin 14.6 g/dl (14.0-18.0); Mean Corpuscular Hemoglobin 31.3 pg (25.0-34.0); Mean Corpuscular Hgb Conc 33.4 g/dL (32.0-36.0); Mean Corpuscular Volume 93.8 fL (80.0-100.0); Mean Platelet Volume 9.2 fL (9.4-12.4); Platelet Count 230 K/uL (130-400); RDW Coefficient of Variation 13.9 % (11.5-14.5); RDW Standard Deviation 48.2 fL (36.4-46.3); Red Blood Count 4.66 M/uL (4.70-6.10); White Blood Count 7.21 K/ul (4.8-10.8)
[2024-11-03 20:18] LABS: Albumin Globulin Ratio 1.3 (0.9-2); Albumin Level 3.9 gm/dl (3.4-5.0); BUN Creatinine Ratio 25.2 (10-20); Bilirubin,Total 0.4 mg/dl (0.2-1.0); Calcium 8.6 mg/dl (8.6-10.3); Creatinine Clr Calc Pharmacy 50.5 ml/min; Potassium 4.1 mmol/L (3.5-5.1); Total Protein 6.9 gm/dl (6.0-8.3)
[2024-11-03 20:23] LABS: Partial Thromboplastin Time 28 Seconds (21-31); Prothrombin Time 10.7 Seconds (9.0-12.0)
[2024-11-03 20:24] LABS: Base Excess VBG 6.2 mEq/L; HCO3 VBG 33 mmol/L; Oxygen Saturation VBG 64.4 %; PCO2 VBG 54 mmHg (38-50); PO2 VBG 37 mmHg; pH VBG 7.39 (7.36-7.41)
[2024-11-03 20:25] LABS: Basophils # (auto) 0.03 K/uL (0.00-0.20); Basophils % (auto) 0.4 %; Eosinophils # (auto) 0.14 K/uL (0.00-0.50); Eosinophils % (auto) 1.9 %; Immature Granulocytes # (auto) 0.04 K/uL (0.01-0.20); Immature Granulocytes % (auto) 0.6 %; Lymphocytes # (auto) 1.91 K/uL (1.20-3.40); Lymphocytes % (auto) 26.5 %; Monocytes # (auto) 0.79 K/uL (0.11-0.59); Neutrophils % (auto) 59.6 %
[2024-11-03 20:31] LABS: Thyroid Stimulating Hormone 1.725 uIu/ml (0.300-4.500)
--- NOTE | 2024-11-03 20:38 | Communication Note ---
Date of Service: November 03, 2024 Notified by nursing at 19:13 that patient had worsened mental status, trouble talking and drowsier than usual. Patient seen at bed side. V/S BP 132/81 HR 95 Temp 36.8 RR: 19, Blood sugar 130. Patient oriented to place and person. Speech normal. Pupil equal and reactive. Normal muscle strength 5/5 strength bilateral. Normal muscle tone. Low concern of stroke on exam. Notes reviewed. CT head No acute intracranial abnormality. CMP, TSH, CBC, Ammonia, TSH all within normal limits. VBG: normal. UA repeated, pending. Seroquel HS hold it, will resume if patient become agitated again. Daughter was updated. Will continue to monitor. Delirium precautions.
--- NOTE | 2024-11-03 21:13 | CT Scan Report ---
Exam(s): CT HEAD Without Contrast EXAM: CT Head Without Intravenous Contrast CLINICAL HISTORY: Reason for exam: stroke?. TECHNIQUE: Axial computed tomography images of the head/brain without intravenous contrast. CTDI is 37.69 mGy and DLP is 546.36 mGy-cm. Automated exposure control was utilized for the study. A dose lowering technique was utilized adhering to the principles of ALARA. COMPARISON: 03/19/2023 FINDINGS: Brain: No intracranial hemorrhage, mass-effect, or cerebral edema. Atrophy and chronic microvascular ischemic changes. Ventricles: Unremarkable. Bones/joints: Unremarkable. No fracture. Soft tissues: Unremarkable. Sinuses: Ethmoid sinus mucosal thickening. Mastoid air cells: Unremarkable as visualized. IMPRESSION: 1. No acute intracranial abnormality. Electronically signed by: Ankit Tomlin MD 11/03/24 21:12 PM
[2024-11-03 23:42] LABS: Appearance Urine Clear (Clear); Bilirubin Urine Negative (Negative); Blood Urine Negative (Negative); Color Urine Yellow; Glucose Urine UA Negative (Negative); Ketones Urine Negative (Negative); Leukocyte Esterase Urine Negative (Negative); Nitrite Urine Negative (Negative); Protein Urine Negative (Negative); Specific Gravity Urine 1.016 (1.000-1.030); Urobilinogen Urine Negative (Negative); pH Urine 6.5 (4.5-7.5)
[2024-11-04] MEDS: QUEtiapine FUMARATE 25 MG TABLET PO STA (05:28)
[2024-11-04 09:36] LABS: Albumin Globulin Ratio 1.3 (0.9-2); Albumin Level 3.9 gm/dl (3.4-5.0); BUN Creatinine Ratio 26.8 (10-20); Bilirubin,Total 0.5 mg/dl (0.2-1.0); Calcium 9.1 mg/dl (8.6-10.3); Creatinine Clr Calc Pharmacy 53.7 ml/min; Globulin 3.1 gm/dl (2.5-4.0); Potassium 4.1 mmol/L (3.5-5.1)
--- NOTE | 2024-11-04 14:19 | Hospitalist Progress Note ---
Date of Service November 04, 2024 Assessment & Plan (1) Constipation: (2) COPD (chronic obstructive pulmonary disease): (3) Ambulatory dysfunction: (4) Essential hypertension: (5) BPH w urinary obs/LUTS: (6) Dementia: Plan The patient is an 89-year-old male with past medical history including BPH with LUTS, tobacco use, prediabetes, hypertension, inferior nasal turbinate hypertrophy, esophageal stricture, hyperlipidemia, COPD, and allergic symptoms.The patient presents to the emergency department with complaint of shortness of breath, constipation, has not moved his bowels in over a week despite normal intake of liquids and solids. He has had difficulty with discomfort urinating, and starting his stream. He reports some generalized fatigue, weakness, and difficulty ambulating. He attributes his shortness of breath to abdominal distention and inability to take a deep breath. #Dementia #AMS / Agitation - resolved - suspect delirium - patient has some dementia or at least cognitive impairment as corroborated by his daughter - according to his daughter, he has become more confused and often drives several times a day to see her - He lives alone and has fallen a few times in the past - He is not a safe discharge home - currently no active evidence of infection - CT head if pt is not improving - abilify changed to seroquel hs + day time dosing per psyc (TID dose changed to BID due to increased sedation), haldol prn for agitation - currently off of restraints and sitter, cooperating well - psych on board. Per psych eval, patient does not have a capacity to make decisions. Case management working on placement #Blurry vision - describes long standing difficulty seeing - will need outpatient eye exam as pt states it has been several years since last exam #Constipation- - Resolved - he has had a bowel movement - will continue stool softener given some residual stool in the colon #COPD exacerbation- - resolved - Continue albuterol sulfate HFA 2 puffs 4 times daily, every 2 hours as needed - Continue Mucinex 600 mg p.o. every 12 hours - DuoNebs every 2 hours as needed - Respiratory BioFire test negative #Hypertension Noted that blood pressure had been running high On 50 mg of losartan Increased to 100 mg of losartan Started amlodipine 10/31 Added hydrochlorothiazide 11/01 Blood pressure better controlled on this regimen. #Tobacco use disorder- - Recently discontinued cigarette use. - Tobacco sensation encouraged. - He reports that he did stop smoking on 10/01/2024, just prior to office visit with Dr. Mario in the outpatient setting #BPH with LUTS- - UA negative - Patient notes decreased urinary output, dysuria, and decreased ability to start stream - cont tamsulosin 0.4 mg daily # Frequent falls - Has fallen a few times in the past - Lives alone - Not able to participate fully in PT because he was not following instructions #Ongoing medical issues: - Hypertension-continue olmesartan or substitute, - Allergic symptoms: Loratadine 10 mg daily as needed, fluticasone nasal spray 2 sprays each nostril daily - Ambulatory dysfunction- PT/OT on board - Prediabetes-glucose 97 on admission follow-up with regular morning laboratories Disposition: - patient has some dementia or at least cognitive impairment as corroborated by his daughter according to his daughter, he has become more confused and often drives several times a day to see her - He lives alone and has fallen a few times in the past - He is not a safe discharge home. - PT / OT on board -PT/OT recommends placement Patient is deemed incapacitated to make decisions about disposition Case management to follow 10/24: updated pt's daughter Natalie Quintanilla ([phone]) 10/27: updated daughter Yoko 11/03. Family meeting held with casey saw operator 11/04: Updated daughter Yoko Admission and Anticipated Discharge Date Admission Date: October 23, 2024 Subjective Patient was seen and examined at 9:40 AM. Reviewed overnight events. Patient was less responsive. Had screening tests done including head CT which were all negative. He is back to his usual baseline today. Review of Systems Review of Systems: All systems reviewed & are unremarkable except as noted in Subjective Physical Exam Physical Exam: General: Awake, conversant. Pleasantly confused. AO x 2 Heart: S1, S2/regular rate and rhythm, no murmur rubs or gallops Lungs: Clear to auscultation bilaterally. Normal effort Abdomen: Soft/nontender/nondistended. No hepatosplenomegaly Extremities: No clubbing/cyanosis. No edema Behavior: Appropriate, cooperative during my encounter Results & Data Results & Data Vital Signs (Past 12 Hours) Vital Signs Temp Pulse Resp BP Pulse Ox O2 Del Method 11/04/24 09:00 Room Air 11/04/24 08:20 36.9 C 82 18 135/68 91 Room Air Laboratory Results Abnormal lab results 11/03/24 11/03/24 11/03/24 Range/Units 19:06 19:36 20:10 RBC 4.66 L (4.70-6.10) M/uL RDW Std Deviation 48.2 H (36.4-46.3) fL MPV 9.2 L (9.4-12.4) fL Harris # (Auto) 0.79 H (0.11-0.59) K/uL VBG pCO2 54 H (38-50) mmHg BUN 26 H (6-23) mg/dl BUN/Creatinine Ratio 25.2 H (10-20) Glucose 117 H (70-99(Fasting)) mg/dl POC Glucose 130 H (70-99) mg/dl 11/04/24 Range/Units 08:41 RBC (4.70-6.10) M/uL RDW Std Deviation (36.4-46.3) fL MPV (9.4-12.4) fL Harris # (Auto) (0.11-0.59) K/uL VBG pCO2 (38-50) mmHg BUN 26 H (6-23) mg/dl BUN/Creatinine Ratio 26.8 H (10-20) Glucose (70-99(Fasting)) mg/dl POC Glucose (70-99) mg/dl Diagnostic Findings Head CT 11/03/24 19:21 Exam(s): CT HEAD Without Contrast EXAM: CT Head Without Intravenous Contrast CLINICAL HISTORY: Reason for exam: stroke?. TECHNIQUE: Axial computed tomography images of the head/brain without intravenous contrast. CTDI is 37.69 mGy and DLP is 546.36 mGy-cm. Automated exposure control was utilized for the study. A dose lowering technique was utilized adhering to the principles of ALARA. COMPARISON: 03/19/2023 FINDINGS: Brain: No intracranial hemorrhage, mass-effect, or cerebral edema. Atrophy and chronic microvascular ischemic changes. Ventricles: Unremarkable. Bones/joints: Unremarkable. No fracture. Soft tissues: Unremarkable. Sinuses: Ethmoid sinus mucosal thickening. Mastoid air cells: Unremarkable as visualized. IMPRESSION: 1. No acute intracranial abnormality. Electronically signed by: Ankit Tomlin MD 11/03/24 21:12 PM PG Care Time/CCT Total # of Minutes Spent Total Time Spent with Patient: Total time spent is greater than 50% in coordination of care (as documented) at patient's floor/unit and/or counseling patient: Coding Level of Care Code 84657 SUB INP/OBS CARE 2/35MIN Diagnoses Constipation K59.00 COPD (chronic obstructive pulmonary disease) J44.9 Ambulatory dysfunction R26.2 Essential hypertension I10 BPH w urinary obs/LUTS N40.1; N13.8 Dementia F03.90
[2024-11-05] MEDS: ONDANSETRON ORAL SOLN 0.8 MG/1 ML PO PRN (11:53)
--- NOTE | 2024-11-05 13:26 | Hospitalist Progress Note ---
Date of Service November 05, 2024 Assessment & Plan (1) Constipation: (2) COPD (chronic obstructive pulmonary disease): (3) Ambulatory dysfunction: (4) Essential hypertension: (5) BPH w urinary obs/LUTS: (6) Dementia: Plan The patient is an 89-year-old male with past medical history including BPH with LUTS, tobacco use, prediabetes, hypertension, inferior nasal turbinate hypertrophy, esophageal stricture, hyperlipidemia, COPD, and allergic symptoms.The patient presents to the emergency department with complaint of shortness of breath, constipation, has not moved his bowels in over a week despite normal intake of liquids and solids. He has had difficulty with discomfort urinating, and starting his stream. He reports some generalized fatigue, weakness, and difficulty ambulating. He attributes his shortness of breath to abdominal distention and inability to take a deep breath. #Dementia #AMS / Agitation - resolved - suspect delirium - patient has some dementia or at least cognitive impairment as corroborated by his daughter - according to his daughter, he has become more confused and often drives several times a day to see her - He lives alone and has fallen a few times in the past - He is not a safe discharge home - currently no active evidence of infection - CT head if pt is not improving - abilify changed to seroquel hs + day time dosing per psyc (TID dose changed to BID due to increased sedation), haldol prn for agitation - currently off of restraints and sitter, cooperating well - psych on board. Per psych eval, patient does not have a capacity to make decisions. Case management working on placement #Blurry vision - describes long standing difficulty seeing - will need outpatient eye exam as pt states it has been several years since last exam #Constipation- - Resolved - he has had a bowel movement - will continue stool softener given some residual stool in the colon #COPD exacerbation- - resolved - Continue albuterol sulfate HFA 2 puffs 4 times daily, every 2 hours as needed - Continue Mucinex 600 mg p.o. every 12 hours - DuoNebs every 2 hours as needed - Respiratory BioFire test negative #Hypertension Noted that blood pressure had been running high On 50 mg of losartan Increased to 100 mg of losartan Started amlodipine 10/31 Added hydrochlorothiazide 11/01 Blood pressure better controlled on this regimen. #Tobacco use disorder- - Recently discontinued cigarette use. - Tobacco sensation encouraged. - He reports that he did stop smoking on 10/01/2024, just prior to office visit with Dr. Mario in the outpatient setting #BPH with LUTS- - UA negative - Patient notes decreased urinary output, dysuria, and decreased ability to start stream - cont tamsulosin 0.4 mg daily # Frequent falls - Has fallen a few times in the past - Lives alone - Not able to participate fully in PT because he was not following instructions #Ongoing medical issues: - Hypertension-continue olmesartan or substitute, - Allergic symptoms: Loratadine 10 mg daily as needed, fluticasone nasal spray 2 sprays each nostril daily - Ambulatory dysfunction- PT/OT on board - Prediabetes-glucose 97 on admission follow-up with regular morning laboratories Disposition: - patient has some dementia or at least cognitive impairment as corroborated by his daughter according to his daughter, he has become more confused and often drives several times a day to see her - He lives alone and has fallen a few times in the past - He is not a safe discharge home. - PT / OT on board -PT/OT recommends placement Patient is deemed incapacitated to make decisions about disposition Case management to follow 10/24: updated pt's daughter Natalie Quintanilla ([phone]) 10/27: updated daughter Yoko 11/03. Family meeting held with gearcase assembler 11/04: Updated daughter Yoko Admission and Anticipated Discharge Date Admission Date: October 23, 2024 Subjective Patient was seen and examined at 10:05 AM. Denied any chest pain or shortness of breath. Complained of feeling nauseous but did not vomit. No abdominal pain. Tolerating diet. Review of Systems Review of Systems: All systems reviewed & are unremarkable except as noted in Subjective Physical Exam Physical Exam: General: Awake, conversant. Pleasantly confused. AO x 2 Heart: S1, S2/regular rate and rhythm, no murmur rubs or gallops Lungs: Clear to auscultation bilaterally. Normal effort Abdomen: Soft/nontender/nondistended. No hepatosplenomegaly Extremities: No clubbing/cyanosis. No edema Behavior: Appropriate, cooperative during my encounter Results & Data Results & Data Vital Signs (Past 12 Hours) Vital Signs Temp Pulse Resp BP Pulse Ox O2 Del Method 11/05/24 07:20 36.4 C L 82 18 106/65 92 Room Air PG Care Time/CCT Total # of Minutes Spent Total Time Spent with Patient: Total time spent is greater than 50% in coordination of care (as documented) at patient's floor/unit and/or counseling patient: Coding Level of Care Code 77033 SUB INP/OBS CARE 2/35MIN Diagnoses Constipation K59.00 COPD (chronic obstructive pulmonary disease) J44.9 Ambulatory dysfunction R26.2 Essential hypertension I10 BPH w urinary obs/LUTS N40.1; N13.8 Dementia F03.90
--- NOTE | 2024-11-06 14:06 | Hospitalist Progress Note ---
Date of Service November 06, 2024 Assessment & Plan (1) Constipation: (2) COPD (chronic obstructive pulmonary disease): (3) Ambulatory dysfunction: (4) Essential hypertension: (5) BPH w urinary obs/LUTS: (6) Dementia: Plan The patient is an 89-year-old male with past medical history including BPH with LUTS, tobacco use, prediabetes, hypertension, inferior nasal turbinate hypertrophy, esophageal stricture, hyperlipidemia, COPD, and allergic symptoms.The patient presents to the emergency department with complaint of shortness of breath, constipation, has not moved his bowels in over a week despite normal intake of liquids and solids. He has had difficulty with discomfort urinating, and starting his stream. He reports some generalized fatigue, weakness, and difficulty ambulating. He attributes his shortness of breath to abdominal distention and inability to take a deep breath. #Dementia #AMS / Agitation - resolved - suspect delirium - patient has some dementia or at least cognitive impairment as corroborated by his daughter - according to his daughter, he has become more confused and often drives several times a day to see her - He lives alone and has fallen a few times in the past - He is not a safe discharge home - currently no active evidence of infection - CT head if pt is not improving - abilify changed to seroquel hs + day time dosing per psyc (TID dose changed to BID due to increased sedation), haldol prn for agitation - currently off of restraints and sitter, cooperating well - psych on board. Per psych eval, patient does not have a capacity to make decisions. Case management working on placement #Blurry vision - describes long standing difficulty seeing - will need outpatient eye exam as pt states it has been several years since last exam #Constipation- - Resolved - he has had a bowel movement - will continue stool softener given some residual stool in the colon #COPD exacerbation- - resolved - Continue albuterol sulfate HFA 2 puffs 4 times daily, every 2 hours as needed - Continue Mucinex 600 mg p.o. every 12 hours - DuoNebs every 2 hours as needed - Respiratory BioFire test negative #Hypertension Noted that blood pressure had been running high On 50 mg of losartan Increased to 100 mg of losartan Started amlodipine 10/31 Added hydrochlorothiazide 11/01 Blood pressure better controlled on this regimen. #Tobacco use disorder- - Recently discontinued cigarette use. - Tobacco sensation encouraged. - He reports that he did stop smoking on 10/01/2024, just prior to office visit with Dr. Mario in the outpatient setting #BPH with LUTS- - UA negative - Patient notes decreased urinary output, dysuria, and decreased ability to start stream - cont tamsulosin 0.4 mg daily # Frequent falls - Has fallen a few times in the past - Lives alone - Not able to participate fully in PT because he was not following instructions #Ongoing medical issues: - Hypertension-continue olmesartan or substitute, - Allergic symptoms: Loratadine 10 mg daily as needed, fluticasone nasal spray 2 sprays each nostril daily - Ambulatory dysfunction- PT/OT on board - Prediabetes-glucose 97 on admission follow-up with regular morning laboratories Disposition: - patient has some dementia or at least cognitive impairment as corroborated by his daughter according to his daughter, he has become more confused and often drives several times a day to see her - He lives alone and has fallen a few times in the past - He is not a safe discharge home. - PT / OT on board -PT/OT recommends placement Patient is deemed incapacitated to make decisions about disposition Case management to follow 10/24: updated pt's daughter Natalie Quintanilla ([phone]) 10/27: updated daughter Yoko 11/03. Family meeting held with case managers 11/04: Updated daughter Yoko Admission and Anticipated Discharge Date Admission Date: October 23, 2024 Subjective Patient was seen and examined at 10:20 AM. Patient does not feel nauseous today. Denies chest pain or shortness of breath. Review of Systems Review of Systems: All systems reviewed & are unremarkable except as noted in Subjective Physical Exam Physical Exam: General: Awake, conversant. Pleasantly confused. AO x 2 Heart: S1, S2/regular rate and rhythm, no murmur rubs or gallops Lungs: Clear to auscultation bilaterally. Normal effort Abdomen: Soft/nontender/nondistended. No hepatosplenomegaly Extremities: No clubbing/cyanosis. No edema Behavior: Appropriate, cooperative during my encounter Results & Data Results & Data Vital Signs (Past 12 Hours) Vital Signs Temp Pulse Resp BP Pulse Ox O2 Del Method 11/06/24 06:34 36.9 C 78 18 126/67 93 Room Air PG Care Time/CCT Total # of Minutes Spent Total Time Spent with Patient: Total time spent is greater than 50% in coordination of care (as documented) at patient's floor/unit and/or counseling patient: Coding Level of Care Code 05489 SUB INP/OBS CARE 2/35MIN Diagnoses Constipation K59.00 COPD (chronic obstructive pulmonary disease) J44.9 Ambulatory dysfunction R26.2 Essential hypertension I10 BPH w urinary obs/LUTS N40.1; N13.8 Dementia F03.90
[2024-11-07] MEDS: amLODIPine BESYLATE 5 MG TAB PO SCH (09:11)
--- NOTE | 2024-11-07 13:50 | Hospitalist Progress Note ---
Date of Service November 07, 2024 Assessment & Plan (1) Constipation: (2) COPD (chronic obstructive pulmonary disease): (3) Ambulatory dysfunction: (4) Essential hypertension: (5) BPH w urinary obs/LUTS: (6) Dementia: Plan The patient is an 89-year-old male with past medical history including BPH with LUTS, tobacco use, prediabetes, hypertension, inferior nasal turbinate hypertrophy, esophageal stricture, hyperlipidemia, COPD, and allergic symptoms.The patient presents to the emergency department with complaint of shortness of breath, constipation, has not moved his bowels in over a week despite normal intake of liquids and solids. He has had difficulty with discomfort urinating, and starting his stream. He reports some generalized fatigue, weakness, and difficulty ambulating. He attributes his shortness of breath to abdominal distention and inability to take a deep breath. #Dementia #AMS / Agitation - resolved - suspect delirium - patient has some dementia or at least cognitive impairment as corroborated by his daughter - according to his daughter, he has become more confused and often drives several times a day to see her - He lives alone and has fallen a few times in the past - He is not a safe discharge home - currently no active evidence of infection - CT head if pt is not improving - abilify changed to seroquel hs + day time dosing per psyc (TID dose changed to BID due to increased sedation), haldol prn for agitation - currently off of restraints and sitter, cooperating well - psych on board. Per psych eval, patient does not have a capacity to make decisions. Case management working on placement. Patient may be able to go to [facility] on Thursday 11/09 #Blurry vision - describes long standing difficulty seeing - will need outpatient eye exam as pt states it has been several years since last exam #Constipation- - Resolved - he has had a bowel movement - will continue stool softener #COPD exacerbation- - resolved - Continue albuterol sulfate HFA 2 puffs 4 times daily, every 2 hours as needed - Continue Mucinex 600 mg p.o. every 12 hours - DuoNebs every 2 hours as needed - Respiratory BioFire test negative #Hypertension Noted that blood pressure had been running high On 50 mg of losartan Increased to 100 mg of losartan Started amlodipine 10/31 Added hydrochlorothiazide 11/01. Stopped hydrochlorothiazide 11/07 Blood pressure better controlled on this regimen. #Tobacco use disorder- - Recently discontinued cigarette use. - Tobacco sensation encouraged. - He reports that he did stop smoking on 10/01/2024, just prior to office visit with Dr. Mario in the outpatient setting #BPH with LUTS- - UA negative - Patient notes decreased urinary output, dysuria, and decreased ability to start stream - cont tamsulosin 0.4 mg daily # Frequent falls - Has fallen a few times in the past - Lives alone - Not able to participate fully in PT because he was not following instructions #Ongoing medical issues: - Allergic symptoms: Loratadine 10 mg daily as needed, fluticasone nasal spray 2 sprays each nostril daily - Ambulatory dysfunction- PT/OT on board - Prediabetes-glucose 97 on admission follow-up with regular morning laboratories Disposition: - patient has some dementia or at least cognitive impairment as corroborated by his daughter according to his daughter, he has become more confused and often drives several times a day to see her - He lives alone and has fallen a few times in the past - He is not a safe discharge home. - PT / OT on board -PT/OT recommends placement Patient is deemed incapacitated to make decisions about disposition Case management to follow 10/24: updated pt's daughter Natalie Quintanilla ([phone]) 10/27: updated daughter Yoko 11/03. Family meeting held with case hardener 11/04: Updated daughter Yoko Likely discharge to personal-long term on 11/09 Admission and Anticipated Discharge Date Admission Date: October 23, 2024 Subjective Patient was seen and examined at 10:20 AM. Per nurse, patient was restless earlier and just fell asleep. Review of Systems Review of Systems: Unobtainable due to cognitive status Physical Exam Physical Exam: General: Sleeping. I did not wake him up Heart: S1, S2/regular rate and rhythm, no murmur rubs or gallops Lungs: Clear to auscultation bilaterally. Normal effort Abdomen: Soft/nontender/nondistended. No hepatosplenomegaly Extremities: No clubbing/cyanosis. No edema Behavior: Unable to assess Results & Data Results & Data Vital Signs (Past 12 Hours) Vital Signs Temp Pulse Resp BP Pulse Ox O2 Del Method 11/07/24 12:14 36.6 C 66 20 116/66 94 Room Air 11/07/24 08:37 36.2 C L 80 18 128/70 90 Room Air 11/07/24 07:58 Room Air PG Care Time/CCT Total # of Minutes Spent Total Time Spent with Patient: Total time spent is greater than 50% in coordination of care (as documented) at patient's floor/unit and/or counseling patient: Coding Level of Care Code 70852 SUB INP/OBS CARE 2/35MIN Diagnoses Constipation K59.00 COPD (chronic obstructive pulmonary disease) J44.9 Ambulatory dysfunction R26.2 Essential hypertension I10 BPH w urinary obs/LUTS N40.1; N13.8 Dementia F03.90
--- NOTE | 2024-11-08 13:59 | Hospitalist Progress Note ---
Date of Service November 08, 2024 Assessment & Plan (1) Constipation: (2) COPD (chronic obstructive pulmonary disease): (3) Ambulatory dysfunction: (4) Essential hypertension: (5) BPH w urinary obs/LUTS: (6) Dementia: Plan The patient is an 89-year-old male with past medical history including BPH with LUTS, tobacco use, prediabetes, hypertension, inferior nasal turbinate hypertrophy, esophageal stricture, hyperlipidemia, COPD, and allergic symptoms.The patient presents to the emergency department with complaint of shortness of breath, constipation, has not moved his bowels in over a week despite normal intake of liquids and solids. He has had difficulty with discomfort urinating, and starting his stream. He reports some generalized fatigue, weakness, and difficulty ambulating. He attributes his shortness of breath to abdominal distention and inability to take a deep breath. #Dementia #AMS / Agitation - resolved - suspect delirium - patient has some dementia or at least cognitive impairment as corroborated by his daughter - according to his daughter, he has become more confused and often drives several times a day to see her - He lives alone and has fallen a few times in the past - He is not a safe discharge home - currently no active evidence of infection - CT head if pt is not improving - abilify changed to seroquel hs + day time dosing per psyc (TID dose changed to BID due to increased sedation), haldol prn for agitation - currently off of restraints and sitter, cooperating well - psych on board. Per psych eval, patient does not have a capacity to make decisions. Case management working on placement. Patient may be able to go to [facility] on Thursday 11/09 #Blurry vision - describes long standing difficulty seeing - will need outpatient eye exam as pt states it has been several years since last exam #Constipation- - Resolved - he has had a bowel movement - will continue stool softener #COPD exacerbation- - resolved - Continue albuterol sulfate HFA 2 puffs 4 times daily, every 2 hours as needed - Continue Mucinex 600 mg p.o. every 12 hours - DuoNebs every 2 hours as needed - Respiratory BioFire test negative #Hypertension Noted that blood pressure had been running high On 50 mg of losartan Increased to 100 mg of losartan Started amlodipine 10/31 Added hydrochlorothiazide 11/01. Stopped hydrochlorothiazide 11/07 Blood pressure better controlled on this regimen. #Tobacco use disorder- - Recently discontinued cigarette use. - Tobacco sensation encouraged. - He reports that he did stop smoking on 10/01/2024, just prior to office visit with Dr. Mario in the outpatient setting #BPH with LUTS- - UA negative - Patient notes decreased urinary output, dysuria, and decreased ability to start stream - cont tamsulosin 0.4 mg daily # Frequent falls - Has fallen a few times in the past - Lives alone - Not able to participate fully in PT because he was not following instructions #Ongoing medical issues: - Allergic symptoms: Loratadine 10 mg daily as needed, fluticasone nasal spray 2 sprays each nostril daily - Ambulatory dysfunction- PT/OT on board - Prediabetes-glucose 97 on admission follow-up with regular morning laboratories Disposition: - patient has some dementia or at least cognitive impairment as corroborated by his daughter according to his daughter, he has become more confused and often drives several times a day to see her - He lives alone and has fallen a few times in the past - He is not a safe discharge home. - PT / OT on board -PT/OT recommends placement Patient is deemed incapacitated to make decisions about disposition Case management to follow 10/24: updated pt's daughter Natalie Quintanilla ([phone]) 10/27: updated daughter Yoko 11/03. Family meeting held with lining caser 11/04: Updated daughter Yoko Likely discharge to [facility] on 11/09. I have prescribed the new medications to [facility] as instructed by lining caser. Admission and Anticipated Discharge Date Admission Date: October 23, 2024 Subjective Patient was seen and examined at 9:20 AM. He was getting ready to go for a walk. Denied chest pain or shortness of breath Review of Systems Review of Systems: All systems reviewed & are unremarkable except as noted in Subjective Physical Exam Physical Exam: General: Awake, conversant Heart: S1, S2/regular rate and rhythm, no murmur rubs or gallops Lungs: Clear to auscultation bilaterally. Normal effort Abdomen: Soft/nontender/nondistended. No hepatosplenomegaly Extremities: No clubbing/cyanosis. No edema Behavior: Appropriate, cooperative Results & Data Results & Data Vital Signs (Past 12 Hours) Vital Signs Temp Pulse Resp BP Pulse Ox O2 Del Method 11/08/24 08:47 36.4 C L 87 18 105/59 L 93 Room Air PG Care Time/CCT Total # of Minutes Spent Total Time Spent with Patient: Total time spent is greater than 50% in coordination of care (as documented) at patient's floor/unit and/or counseling patient: Coding Level of Care Code 58616 SUB INP/OBS CARE 2/35MIN Diagnoses Constipation K59.00 COPD (chronic obstructive pulmonary disease) J44.9 Ambulatory dysfunction R26.2 Essential hypertension I10 BPH w urinary obs/LUTS N40.1; N13.8 Dementia F03.90
[2024-11-09 08:01] VITALS: BP 152/76; PULSE 86; RESP 18; TEMP 97.7; O2SAT 92
--- NOTE | 2024-11-09 09:36 | Discharge Summary ---
Discharge Summary Date of Service November 09, 2024 Principal Dx & Hospital Course #1 = Principal Diagnosis (1) Constipation: (2) COPD (chronic obstructive pulmonary disease): (3) Ambulatory dysfunction: (4) Essential hypertension: (5) BPH w urinary obs/LUTS: (6) Dementia: Plan The patient is an 89-year-old male with past medical history including BPH with LUTS, tobacco use, prediabetes, hypertension, inferior nasal turbinate hypertrophy, esophageal stricture, hyperlipidemia, COPD, and allergic symptoms.The patient presents to the emergency department with complaint of shortness of breath, constipation, has not moved his bowels in over a week despite normal intake of liquids and solids. He has had difficulty with discomfort urinating, and starting his stream. He reports some generalized fatigue, weakness, and difficulty ambulating. He attributes his shortness of breath to abdominal distention and inability to take a deep breath. #Dementia #AMS / Agitation - resolved - suspect delirium - patient has some dementia or at least cognitive impairment as corroborated by his daughter - according to his daughter, he has become more confused and often drives several times a day to see her. He lives alone and has hx of falls in the past. He is not safe to return home. - currently no active evidence of infection - Abilify switched to seroquel hs + day time dosing per psyc (TID dose changed to BID due to increased sedation) - currently off of restraints and sitter, cooperating well - psych on board. Per psych eval, patient does not have a capacity to make decisions. Patient to go to [facility] #Blurry vision - describes long standing difficulty seeing - will need outpatient eye exam as pt states it has been several years since last exam #Constipation- - Resolved - Continue fiber outpatient. #COPD exacerbation- - resolved - Continue albuterol sulfate HFA 2 puffs 4 times daily, every 2 hours as needed - Respiratory BioFire test negative #Hypertension On Olmesartan outpatient -Patient had adjustments in his anti-hypertensives while inpatient. Switched back to outpatient dose on discharge. - recommend frequent BP checks to ensure BP is stable, patient may require up titration of medication outpatient but defer to PCP. #Tobacco use disorder- - Recently discontinued cigarette use. - Tobacco sensation encouraged. - He reports that he did stop smoking on 10/01/2024, just prior to office visit with Dr. Mario in the outpatient setting #BPH with LUTS- - UA negative - Patient notes decreased urinary output, dysuria, and decreased ability to start stream - cont tamsulosin 0.4 mg daily # Frequent falls - Has fallen a few times in the past - Lives alone - Not able to participate fully in PT because he was not following instructions #Ongoing medical issues: - Allergic symptoms: Loratadine 10 mg daily as needed, fluticasone nasal spray 2 sprays each nostril daily - Ambulatory dysfunction- PT/OT on board - Prediabetes-glucose 97 on admission Disposition: -PT/OT recommends placement Patient is deemed incapacitated to make decisions about disposition Discharge to [facility] 11/09. Admission HPI Per Admitting Provider The patient is an 89-year-old male with past medical history including BPH with LUTS, tobacco use, prediabetes, hypertension, inferior nasal turbinate hypertrophy, esophageal stricture, hyperlipidemia, COPD, and allergic symptoms.The patient presents to the emergency department with complaint of shortness of breath, constipation, has not moved his bowels in over a week despite normal intake of liquids and solids. He has had difficulty with discomfort urinating, and starting his stream. He reports some generalized fatigue, weakness, and difficulty ambulating. He attributes his shortness of breath to abdominal distention and inability to take a deep breath. Discharge Exam Constitutional WD/WN, vitals as above Eyes PERRL, conjunctivae normal, anicteric sclerae Respiratory breathing unlabored Cardiovascular well perfused Psychiatric pleasantly demented Discharge Plan Discharge Items Patient Disposition: Personal [facility] Care Reason For Visit: CONSTIPATION, URINARY RETENTION, COPD Discharge Diagnosis: Constipation, COPD Activity: Resume your previous activity Non-emergency contact: Primary Care Provider Call non-emergency contact if: you have any medication questions and your symptoms worsen Follow-up/Referrals: Stacie Mario MD [Primary Care Provider] - Diet: Regular Addtl Attending Provider Instructions: Medications added include Seroquel 50mg HS and 12.5mg BID along with Flomax 0.4mg daily. Recommend frequent monitoring of BP to assess if he requires dosage adjustment to his hypertensive agents outpatient. Pending Studies at Discharge: No Stand-Alone Forms: Lob, Smoking Cessation Skilled Items Patient informed of condition?: Yes DNR: No Discharge Level of Care: Other Communicable Disease: No Discharge Prognosis: Stable Lines: None Urinary Catheter: No Medications and DC Order Prescriptions: New tamsulosin 0.4 mg Capsule 0.4 mg PO QAM 30 Days Qty: 30 0RF quetiapine 25 mg Tablet 50 mg PO HS 30 Days Qty: 60 0RF quetiapine 25 mg Tablet 12.5 mg PO BID17 30 Days Qty: 15 0RF Continued Metamucil 3.4 gram/5.4 gram powder 1 tbsp PO DAILY Qty: 660 2RF Rx Instructions: mix into at least 8 oz of water or juice before administering loratadine 10 mg tablet 10 mg PO DAILY PRN (Reason: allergy symptoms) 90 Days Qty: 90 1RF fluticasone propionate 50 mcg/actuation spray,suspension 2 spray intranasal DAILY Qty: 48 2RF Rx Instructions: administer into each nostril olmesartan 20 mg tablet 20 mg PO DAILY Qty: 90 3RF acetaminophen [Tylenol Extra Strength] 500 mg tablet 500 mg PO Q6H PRN guaifenesin [Mucinex] PO PRN magnesium 250 mg tablet 250 mg PO DAILY albuterol sulfate 90 mcg/actuation HFA aerosol inhaler 2 puff inhalation QID PRN (Reason: shortness of breath or wheezing) Qty: 8.5 1RF Discharge Orders: Discharge Order (Routine); Ordered 11/09/24 Ordered By: Julia Kat Admission Data Admit Date/Time: 10/23/24 13:23 Attending Provider: Quirino Martin Admit Provider: Keith Ray Primary Care Provider: Stacie Mario Other Providers: Keith Ray; [facility]; Vesta Bernard; Moses Nugent; Mary Babin; Ester Santos; Gabriel Lamar; Kendal Roa; Tavo Ryan; [place]; [facility] Other Interventions: Discharge Summary Assessment (RN) Last Done: 11/09/24 09:30 Hospital Stay Data Consultations 10/21/24 05:46 ED Decision to Admit Stat 10/22/24 15:20 Consult Psychiatry Routine Diagnostic Imagining Performed 10/21/24 07:40 CT Abd and Pelvis [CT abd pelvis wo con] Routine 11/03/24 19:[address] [CT head/brain wo con] Stat Pending Results Patient Have Any Pending Studies at Discharge: No Discharge Instructions Given to Patient (Per Discharging Provider) Medications added include Seroquel 50mg HS and 12.5mg BID along with Flomax 0.4mg daily. Recommend frequent monitoring of BP to assess if he requires dosage adjustment to his hypertensive agents outpatient. Total Time Total Time Spent Total Time Spent (In Minutes): 35 Total Time Includes: Examination of the Patient, Discharge Planning and Medication Reconciliation Coding Level of Care Code 08533 INP/OBS DISCH >30 MIN Diagnoses Constipation K59.00 COPD (chronic obstructive pulmonary disease) J44.9 Ambulatory dysfunction R26.2 Essential hypertension I10 BPH w urinary obs/LUTS N40.1; N13.8 Dementia F03.90
== END 2024-11-09 11:17 | disposition home or self-care (01) | DRG 191 ==
LOC: SUATTDRO → ED 04:05 → 3W 04:05 → SUATTDRO 05:48 → 3W 06:38 → SUATTDRO 10-23 13:23 → 3N 10-25 22:18